=== PATIENT | male | born 1950 | race Caucasian/White ===

== ENCOUNTER 2023-11-18 08:38 | Outpatient (OUT) | payer MEDICARE, SELFPAY ==
--- NOTE | 2023-11-18 08:49 | ECG_ITS ---
The [facility] Test Date: 2023-11-18 Pat Name: SARIKA WALLACE Department: Room: - Gender: Male Brusher: : 1950 Requested By: Order Number: [id number] Reading MD: TIFFANI ELWIS Measurements Intervals [place] Rate: 49 P: 75 NV: 194 QRS: 58 QRSD: 108 T: 81 QT: 419 QTc: 382 Interpretive Statements SINUS BRADYCARDIA MODERATE INTRAVENTRICULAR CONDUCTION DELAY [105+ ms QRS DURATION, 80+ ms Q/S IN V1/V2, NO Q AND 60+ ms R IN I/aVL/V5/V6] NONSPECIFIC T-WAVE ABNORMALITY No previous ECG available for comparison Electronically Signed On 11-18-2023 22:23:47 EST by TIFFANI LEWIS
--- NOTE | 2023-11-18 09:47 | XR_ITS ---
The [address] [address] Patient Name: SARIKA WALLACE MRN: [id number] date: 1950 Sex: M Assigned Patient Location: [facility] Current Patient Location: [facility] Accession/Order Number: [id number] Exam Date: 11/18/2023 09:40 Report Date: 11/18/2023 10:04 At the request of: MILLIE ROBLES Procedure: XR chest 2V EXAM: XR chest 2V HISTORY: Preop exam COMPARISON: None. TECHNIQUE: PA and lateral views of the chest. FINDINGS: The cardiomediastinal silhouette is normal. No focal consolidation is identified. There is no pneumothorax. No pleural effusion is noted. The osseous structures are intact. XR/XR chest 2V IMPRESSION: No acute cardiopulmonary process. Suggestion of COPD. Electronically authenticated by: WHIT PHILIPPE Date: 11/18/2023 10:04
[2023-11-18 09:51] LABS: Basophils Absolute Auto 0.1 10^3/uL (0.0-0.1); Eosinophils Absolute Auto 0.1 10^3/uL (0.0-0.7); Eosinophils Percent Auto 1.5 % (0.9-7.0); Hematocrit 40.2 % (42.0-54.0); Hemoglobin 13.5 g/dL (14.0-18.0); Immature Granulocytes Abs Auto 0.01 10^3/uL (0.00-0.03); Immature Granulocytes Pct Auto 0.2 % (0.0-0.5); Lymphocytes Absolute Auto 1.5 10^3/uL (1.2-3.8); Lymphocytes Percent Auto 24.6 % (20.5-60.0); Mean Corpuscular HGB Conc 33.6 g/dL (29.9-35.2); Mean Corpuscular Hemoglobin 31.8 pg (25.9-34.0); Mean Corpuscular Volume 94.6 fL (80.0-94.0); Mean Platelet Volume 9.4 fL (9.5-13.5); Monocytes Absolute Auto 0.5 10^3/uL (0.3-0.8); Monocytes Percent Auto 7.8 % (1.7-12.0); Neutrophils Percent Auto 64.9 % (43.0-75.0); Platelet Count 198 10^3/uL (150-450); Red Blood Count 4.25 10^6/uL (4.70-6.10); Red Cell Distribution Width 12.9 % (11.0-15.0); White Blood Count 6.2 10^3/uL (4.0-11.0)
--- NOTE | 2023-11-18 09:53 | PM.PRESUREVA ---
History of Present Illness History of Present Illness Chief complaint: LESION, LEFT EXTERNAL EAR CANAL Narrative: Patient presents for preadmission testing. The patient reports hearing loss and left ear drainage for a few months. He has a history of lung cancer in remission, CAD with stent placement, and tobacco use. He denies fever, sore throat, difficulty swallowing, or any other complaints. Review of Systems ROS Narrative REVIEW OF SYSTEMS: Negative except as stated in HPI, ten or more systems reviewed. Constitutional: No fever , chills, weakness ENT: No sore throat or epistaxis Cardiovascular: No edema, chest pain, palpitations, or activity intolerance Respiratory: No shortness of breath, cough, or wheezing Musculoskeletal: No joint pain or swelling Gastrointestinal: No abdominal pain, constipation, diarrhea, or vomiting Genitourinary: No dysuria or hematuria Neurological: No numbness, tingling, weakness, or headache Psychiatric: No mood changes [facility] Medical History (Updated 11/18/23 @ 09:23 by Iwona Swanson NP) Ear lesion ?H93.90 - Unspecified disorder of ear, unspecified ear (ICD-10) Back pain ?M54.9 - Dorsalgia, unspecified (ICD-10) Arthritis ?M19.90 - Unspecified osteoarthritis, unspecified site (ICD-10) Lung cancer ?C34.90 - Malignant neoplasm of unspecified part of unspecified bronchus or lung (ICD-10) Erectile dysfunction ?N52.9 - Male erectile dysfunction, unspecified (ICD-10) High cholesterol ?E78.00 - Pure hypercholesterolemia, unspecified (ICD-10) Hypertension ?I10 - Essential (primary) hypertension (ICD-10) Coronary artery disease ?I25.10 - Atherosclerotic heart disease of [place] coronary artery without angina pectoris (ICD-10) Hearing loss ?H91.90 - Unspecified hearing loss, unspecified ear (ICD-10) Surgical History (Updated 11/18/23 @ 09:45 by Iwona Swasnon NP) History of foot surgery ?Z98.890 - Other specified postprocedural states (ICD-10) History of hernia repair ?Z98.890 - Other specified postprocedural states (ICD-10) ?Z87.19 - Personal history of other diseases of the digestive system (ICD-10) History of total hip arthroplasty ?Z96.649 - Presence of unspecified artificial hip joint (ICD-10) History of heart artery stent ?Z95.5 - Presence of coronary angioplasty implant and graft (ICD-10) History of spinal surgery ?Z98.890 - Other specified postprocedural states (ICD-10) Family History (Updated 11/18/23 @ 09:23 by Iwona Swanson NP) Other Brain aneurysm Family history of myocardial infarction Social History (Updated 11/18/23 @ 09:17 by Iwona Swanson NP) Within the past year, how often did you have a drink containing alcohol: never Score interpretation: A score less than 4 is consistent with normal alcohol consumption. Smoking status: Current every day smoker What tobacco products do you use: cigarettes Packs per day: 1 Years smoked: 60 Smoking pack-years: 60.00 Highest level of school completed/degree received: high school graduate Meds Home Medications and Allergies Home Medications Medication Instructions Recorded Confirmed Type amlodipine 10 mg tablet 10 mg PO DAILY 11/18/23 11/18/23 History aspirin 81 mg tablet,delayed 81 mg PO DAILY 11/18/23 11/18/23 History release (Adult Aspirin Regimen) atorvastatin 20 mg tablet 20 mg PO DAILY 11/18/23 11/18/23 History benazepril 40 mg tablet 40 mg PO DAILY 11/18/23 11/18/23 History carvedilol 25 mg tablet 25 mg PO BID 11/18/23 11/18/23 History hydrochlorothiazide 25 mg tablet 25 mg PO DAILY 11/18/23 11/18/23 History sertraline 50 mg tablet 50 mg PO Q24H 11/18/23 11/18/23 History Allergies Allergy/AdvReac Type Severity Reaction Status Date / Time No Known Drug Allergies Allergy Verified 11/18/23 09:11 Exam Narrative Exam Narrative: Constitutional: Awake, alert, comfortable, chronically-ill appearing, poorly groomed, nontoxic, interactive, vital signs as charted Head: Normocephalic, atraumatic ENT: Active drainage from left ear canal Neck: Supple, normal appearance, normal range of motion, no meningeal signs, no lymphadenopathy Respiratory: No respiratory distress, breath sounds clear Cardiovascular: Bradycardic rate and reguar rhythm, no murmur Musculoskeletal: Normal gait, no swelling or edema Skin: No rashes or induration, no lesions, only visible skin inspected Neuro: No neurological deficits, normal sensation Psychiatric: Oriented ?3, normal affect Assessment and Plan Assessment and Plan (1) Ear lesion: Plan Biopsy left external auditory canal scheduled with Dr. Calvo 12/02/2023.
[2023-11-18 10:05] LABS: Anion Gap 8.1; BUN Creatinine Ratio 18.2; Calcium 8.8 mg/dL (8.5-10.1); Carbon Dioxide 30.6 mmol/L (21.0-32.0); Chloride 100 mmol/L (98-107); Estimated GFR (African America >60 (>=60); Estimated GFR (Non-African Ame >60 (>=60); Glucose 95 mg/dL (74-106); Potassium 3.7 mmol/L (3.5-5.1); Sodium 135 mmol/L (136-145)
[2023-11-18 10:11] LABS: INR 1.08; Partial Thromboplastin Time 29.8 sec (22.3-36.2); Prothrombin Time 11.4 sec (9.0-11.6)
== END 2023-11-18 08:39 | disposition home or self-care (01) ==
LOC: PST 08:41
PROVIDERS: PCP Family Medicine; Visit Provider Otolaryngology
DX: Z01.810 Encounter for preprocedural cardiovascular examination (principal); Z01.818 Encounter for other preprocedural examination; Z01.812 Encounter for preprocedural laboratory examination; H61.92 Disorder of left external ear, unspecified
CPT/HCPCS: 71046; 80048; 85025; 85610; 85730; 93005; G0463

== ENCOUNTER 2023-12-02 08:33 | Day surgery (SDC) | payer MEDICARE, SELFPAY ==
[2023-11-18 09:46] VITALS: BP 157/76; PULSE 56; RESP 20; TEMP 36.3; O2SAT 97; BMI 20.9
[2023-12-02] VITALS (9 sets, daily range): BP systolic 137–152; BP diastolic 71–79; PULSE 64–81; RESP 14–23; TEMP 36–36.1; O2SAT 93–97
--- NOTE | 2023-12-02 | OP_ITS ---
OPERATION DATE: 12/02/2023 PRIMARY CARE PHYSICIAN: Georgia Buenrostro M.D. SURGEON: Christine Calvo M.D. PREOPERATIVE DIAGNOSIS: Left external auditory canal lesion. POSTOPERATIVE DIAGNOSIS: Left external auditory canal lesion. PROCEDURE: Biopsy of left external auditory canal lesion. ANESTHESIA: General LMA. COMPLICATIONS: None. FINDINGS: Exophytic lesion of the anterior medial left external auditory canal concerning for squamous cell carcinoma. INDICATIONS: This 73-year-old man presented with a soft tissue lesion of the left external auditory canal concerning for a possible carcinoma. PROCEDURE: Patient identified in the holding area and taken back to the OR where he was placed in the supine position. After induction of general anesthesia, the left ear was approached with the otomicroscope. Lidocaine 1% with 1:100,000 epinephrine was injected into the base of the exophytic portion of the lesion. The ear was the irrigated with isopropyl alcohol and, after waiting adequate time for hemostasis, a Bellucci scissor was used to amputate the exophytic portion of the lesion at its base. It was then sent for pathologic analysis. There was no bleeding and the patient was awakened and taken to the recovery room in good condition. JENA
--- OUTSIDE RECORDS SUMMARY | 2023-12-02 08:35 | XMS_ITS | CCD ---
Author Name Unknown Address [address] [place] [address] Organization [facility] Care Team Providers Care Scrubber Machine Tender Name Role Phone HIGHLANDER, PETER Unavailable Unavailable HIGHLANDER, PETER Unavailable Unavailable PORTER, GEORGIA Unavailable Unavailable HIGHLANDER, PETER Unavailable Unavailable HIGHLANDER, PETER Unavailable Unavailable HIGHLANDER, PETER Unavailable Unavailable ZIEBER, CHARANJIT R Unavailable Unavailable HIGHLANDER, PETER Unavailable Unavailable HIGHLANDER, PETER Unavailable Unavailable HIGHLANDER, PETER Unavailable Unavailable PORTER, GEORGIA Unavailable Unavailable HIGHLANDER, PETER Unavailable Unavailable HIGHLANDER, PETER Unavailable Unavailable HIGHLANDER, PETER Unavailable Unavailable PORTER, GEORGIA Unavailable Unavailable ZIEBER, CHARANJIT R Unavailable Unavailable HIGHLANDER, PETER Unavailable Unavailable RENETTA, JAKE Unavailable Unavailable HIGHLANDER, PETER Unavailable Unavailable HIGHLANDER, PETER Unavailable Unavailable ZIEBER, CHARANJIT R Unavailable Unavailable HIGHLANDER, PETER Unavailable Unavailable HIGHLANDER, PETER Unavailable Unavailable HIGHLANDER, PETER Unavailable Unavailable ZIEBER, CHARANJIT R Unavailable Unavailable HIGHLANDER, PETER Unavailable Unavailable HIGHLANDER, PETER Unavailable Unavailable HIGHLANDER, PETER Unavailable Unavailable ZIEBER, CHARANJIT R Unavailable Unavailable HIGHLANDER, PETER Unavailable Unavailable BARON, MENA Unavailable Unavailable BARON, MENA Unavailable Unavailable WESTANDREAS V Unavailable Unavailable BARON, MENA Unavailable Unavailable HIGHLANDER, PETER Unavailable Unavailable HIGHLANDER, PETER Unavailable Unavailable WESTANDREAS V Unavailable Unavailable HIGHLANDER, PETER Unavailable Unavailable HIGHLANDER, PETER Unavailable Unavailable HIGHLANDER, PETER Unavailable Unavailable Porter SINCLAIR, Georgia Banegas Primary Care Provider Georgia Buenrostro MD Primary Care Provider [phone] MILLIE ROBLES Attending Unavailable Tawanna STOCK Referring Unavailable GEORGIA BUENROSTRO Primary Care Unavailable YUMIKO SHAW Referring Unavailable YUMIKO SHAW Attending Unavailable GEORGIA BUENROSTRO Primary Care Unavailable MILA, JIAN Referring Unavailable GEORGIA BUENROSTRO Primary Care Unavailable KATHYLOU, JAIN Referring Unavailable GEORGIA BUENROSTRO Primary Care Unavailable Tawanna STOCK Referring Unavailable Tawanna STOCK Attending Unavailable GEORGIA BUENROSTRO Primary Care Unavailable Medications Completed/Discontinued Medications Medication Drug Class(es) Dates Sig (Normalized) Sig (Original) amLODIPine 5 mg oral tablet (2 sources) Dihydropyridine Calcium Channel Nicole take 1 tablet by mouth once daily amLODIPine 5 mg tablet Take 5 mg by mouth once daily. 0 Active Comment on above: Take 5 mg by mouth o nce daily. aspirin 81 mg oral tablet (2 sources) Platelet Aggregation Inhibitor, Nonsteroidal Anti-inflammatory Drug Aspirin 81 mg tab Ta ke 81 mg by mouth. 0 Active Comment on above: Take 81 mg by mouth. atorvastatin 20 mg oral tablet (2 sources) HMG-CoA Reductase Inhibitor take 1 tablet by mouth once daily atorvastatin 20 mg tablet Take 20 mg by mouth once daily. 0 Active Comment on above: Take 20 mg by mouth once daily. benazepril hydrochloride 40 mg oral tablet (2 sources) Angiotensin Converting Enzyme Inhibitor take 1 tablet by mouth once daily Benazepril HCl 40 mg tablet Take 40 mg by mouth once daily. 0 Active Comment on above: Take 40 mg by mouth once daily. carvedilol 25 mg oral tablet (2 sources) alpha-Adrenergic Nicole, beta-Adrenergic Nicole Start: 09-03-20 take 1 tablet by mouth twice daily at mealtime carvedilol (COREG) 25 mg tablet Take 25 mg by mouth twice daily with meals. 0 09/03/2015 Active Comment on above: Take 25 mg by mouth twice daily with meals. hydroCHLOROthiazide 25 mg oral tablet (2 sources) Thiazide Diuretic take 1 tablet by mouth once daily hydrochlorothiazide 25 mg tablet Take 25 mg by mouth once daily. 0 Active Comment on above: Take 25 mg by mouth once daily. meloxicam 15 mg oral tablet (1 source) Nonsteroidal Anti-inflammatory Drug End: 04-18-20 take 1 tablet by mouth once daily meloxicam 15 mg tablet Take 15 mg by mouth once daily. 0 04/18/2022 Discontinued (Discontinued by another Health Care Provider) Comment on above: Take 15 mg by mouth once daily. sertraline 50 mg oral tablet (2 sources) Serotonin Reuptake Inhibitor take 1 tablet by mouth once daily sertraline 50 mg tablet Take 50 mg by mouth once daily. 0 Active Comment on above: Take 50 mg by mouth once daily. Problems Active Problems Problem Classification Problem Date Documented Date Episodic/Chronic Acquired foot deformities (10 sources) Other hammer toe(s) (acquired), left foot; Translations: [Hallux valgus (acquired), left foot] Onset: 8 Chronic Acquired foot deformities (4 sources) Bunion of left foot; Translations: [BUNION OF LEFT FOOT] Onset: 8 Anxiety disorders (1 source) Anxiety disorder, unspecified; Translations: [ANXIETY DISORDER UNSPECIFIED] Onset: 8 Chronic Cancer of bronchus; lung (4 sources) Malignant tumor of lung; Translations: [Malignant neoplasm of unspecified part of unspecified bronchus or lung] Onset: 4 02-18-2014 Chronic Coronary atherosclerosis and other heart disease (1 source) Atherosclerotic heart disease of [place] coronary artery without angina pectoris; Translations: [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] Onset: 8 Chronic Disorders of lipid metabolism (1 source) Pure hypercholesterolemia, unspecified; Translations: [PURE HYPERCHOLESTEROLEMIA UNSPEC] Onset: 8 Essential hypertension (1 source) Essential (primary) hypertension; Translations: [ESSENTIAL PRIMARY HYPERTENSION] Onset: 8 Chronic Immunizations and screening for infectious disease (1 source) Needs influenza immunization; Translations: [Encounter for immunization] Episodic Other acquired deformities (1 source) Contracture, left ankle; Translations: [CONTRACTURE LEFT ANKLE] Onset: 8 Chronic Other connective tissue disease (1 source) Presence of right artificial knee joint; Translations: [PRESENCE RT ARTIFICIAL KNEE JOINT] Onset: 8 Chronic Other connective tissue disease (5 sources) Pain in left foot; Translations: [PAIN IN LEFT FOOT] Onset: 8 Episodic Other nervous system disorders (2 sources) Pain due to neoplastic disease; Translations: [Neoplasm related pain (acute) (chronic)] Onset: 4 02-18-2014 Chronic Peripheral and visceral atherosclerosis (4 sources) Peripheral vascular disease, unspecified; Translations: [PERIPHERAL VASCULAR DISEASE UNS] Onset: 8 Chronic Residual codes; unclassified (4 sources) Other specified postprocedural states; Translations: [OTH SPECIFIED POSTPROCEDURAL STATES] Onset: 8 Substance-related disorders (1 source) Nicotine dependence, cigarettes, uncomplicated; Translations: [NICOTINE DEPEND CIGARETTES UNCOMP] Onset: 8 Chronic Past or Other Problems Problem Classification Problem Date Documented Date Episodic/Chronic Cancer of bronchus; lung (6 sources) Personal history of other malignant neoplasm of bronchus and lung; Translations: [History of malignant neoplasm of thoracic cavity structure] Onset: 4 Episodic Joint disorders and dislocations; trauma-related (2 sources) Unspecified dislocation of left toe(s), subsequent encounter; Translations: [Dislocation of metatarsophalangeal joint of left lesser toe(s), initial encounter] Onset: 8 Episodic Other aftercare (1 source) intermediate frame tender (current) use of aspirin; Translations: [RISK CONTROL REPRESENTATIVE CURRENT USE OF ASPIRIN] Onset: 8 Episodic Other connective tissue disease (1 source) Metatarsalgia, left foot; Translations: [METATARSALGIA LEFT FOOT] Onset: 8 Episodic Other connective tissue disease (1 source) Arthrodesis status; Translations: [ARTHRODESIS STATUS] Onset: 8 Episodic Other lower respiratory disease (2 sources) Lung mass; Translations: [Other nonspecific abnormal finding of lung field] Onset: 4 02-18-2014 Episodic Other upper respiratory infections (2 sources) Acute sinusitis; Translations: [Acute sinusitis, unspecified] Onset: 6 10-23-2016 Episodic Results Test Name Value Interpretation Reference Range Facility [facility] 10-24-2023 [facility] Visit (SP) Office ([place]) -------- SARIKA CROWDER ([id number]) 1950 M Date Time Provider Department 10/24/23 10:30 AM YUMIKO SHAW During your visit today, we recorded the following information about you: Temperature Pulse Respiration Blood pressure 97.6 degrees 58/minute 16/minute 126/71 Weight Height 66.4 kg 1.715 m Yumiko Shaw PA-C 10/24/2023 10:55 AM Signed PATIENT NAME: Sarika Crowder [facility] NO.: [id number] ATTENDING PHYSICIAN: Jian Muniz MD DATE OF SERVICE: October 24, 2023 (Elements copied from Dr. 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 Treatment History: 1. Concurrent chemo ( Carbo/Taxotere and erbitux per Dr. Zamarripa 03/09/2014-04/13/2014. XRT 03/16/2014-04/22/2014 Patient with complete response. HPI: Sarika returns for 1 year follow up. Doing well overall. Breathing is stable. Still smoking about 1 ppd. Is seeing ENT for an ear infection which he reports is getting better. No other new medical issues or complaints. PAST MEDICAL HISTORY Diagnosis Date Hypertension Lung mass 02/14/2014 Neck fracture (HCC) h/o Rib fracture h/o Stented coronary artery Social History Tobacco Use Smoking status: Every Day Packs/day: 1.00 Years: 45.00 Additional pack years: 0.00 Total pack years: 45.00 Types: Cigarettes Passive exposure: Current Smokeless tobacco: Never Vaping Use Vaping Use: Never used Substance Use Topics Alcohol use: No Drug use: Never No family history on file. Past medical, social and family history reviewed without any changes. REVIEW OF SYSTEMS GENERAL: No weight loss, malaise or fevers. No night sweats. HEENT: Negative for headaches, No changes in hearing or vision, no nose bleeds or other nasal problems. +ear infection RESPIRATORY: Negative for cough, wheezing and shortness of breath CARDIOVASCULAR: Negative for chest pain, leg swelling and palpitations GI: Negative for abdominal discomfort, blood in stools or black stools and change in bowel habits : Negative for dysuria, frequency and incontinence MUSCULOSKELETAL: Negative for joint pain or swelling, back pain, and muscle pain. SKIN: Negative for lesions, rash, and itching. HEMATOLOGY/LYMPHOLOGY Negative for prolonged bleeding, bruising easily, and swollen nodes. NEURO: Negative for numbness or tingling of hands/feet. No weakness. PHYSICAL EXAMINATION: BP 126/71 Pulse 58 Temp (Src) 97.6 (Temporal) Resp 16 Ht 5' 7.52 (1.72m) Wt 146 lb 6.2 oz (66.4kg) SpO2 96% BMI 22.58 kg/(m2). ECOG PERFORMANCE STATUS: 0- Fully active, able to carry on all pre-disease performance w/o restriction. General: Alert and oriented, no distress, pleasant and cooperative. Heart: Regular, normal S1 and S2, no murmurs, rubs, or gallops Lungs: Clear to auscultation bilaterally Abdomen: Benign Extremities: Feet/ankles without edema, posterior tibial pulses full and symmetrical LABS: PATH: SCC of the lung. Imaging: PET 12/2018: 1. NECK: No FDG avid neoplastic process. No mass, adenopathy, or fluid collection. 2. CHEST: New tiny hypermetabolic foci of uptake in the right hilar region, likely related to tiny subcentimeter lymph nodes. These lymph nodes are likely reactive lymph nodes. Attention to this region on follow-up CT scan of the chest or PET/CT scan. 3. ABDOMEN/PELVIS: No FDG avid neoplastic process. No mass, adenopathy, or fluid collection CT of the Chest 10/27/2020: 1. New right lower lobe groundglass opacities and new 6-7 mm right middle lobe nodular opacity, most likely infectious/inflammatory in etiology. Superimposed neoplasm cannot be excluded. Consider follow-up to complete resolution. 2. Healing fracture deformity of the left posterior 11th rib, new since 10/15/2019. 3. Nonobstructing right renal stones. 4. Right apical post radiation change, stable. 5. Mild emphysematous changes of lungs CT Chest 10/2022: 1. New subtle reticular groundglass opacities in the right lower lobe, most likely infectious/inflammatory in etiology. Consider follow-up to complete resolution. 2. Right apical post radiation change, stable. CT chest 10/2023: 1. Interval resolution of previously noted right lower lobe reticulonodular opacities. 2. Otherwise no interval change since 10/18/22. 3. Right apical post radiation change and punctate nodular opacities, stable. Assessment and Plan: Sarika Crowder is a 73 year old year old male here for follow up. T4,N1,M0 NSCLC- Squamous cell lung cancer of the R lung post chemo and XRT per Dr. Zamarripa completed 2013 in [place] and doing clinically well. Reviewed chest CT (more content not included)... Normal [facility] CNPNon 10-20-2023 CNPN Telephone ([place]) -------- SARIKA CROWDER ([id number]) 1950 M Date Time Provider Department 10/20/23 GALINA RENEE During your visit today, we recorded the following information about you: Galina Renee RN 10/20/2023 11:25 AM Signed ----- Message from Nikki Cole RN sent at 10/20/2023 11:14 AM EST ----- ----- Message ----- From: Jian Muniz MD Sent: 10/18/2023 8:56 AM EST To: Nikki Cole RN Call with negative CT Galina Renee RN 10/20/2023 11:27 AM Signed VM left with Malik message. Pt is encouraged to call with any questions or concerns Galina Renee RN Allergies As of Date: 10/20/2023 (No Known Allergies) Date Reviewed: 04/03/2023 Reviewed by: Mehreen Horne LPN - Fully Assessed Reason for Visit: Results [95] Prescriptions as of 10/20/2023 - carvedilol (COREG) 25 mg tablet Take 25 mg by mouth twice daily with meals. - amLODIPine 5 mg tablet Take 5 mg by mouth once daily. - Aspirin 81 mg tab Take 81 mg by mouth. - atorvastatin 20 mg tablet Take 20 mg by mouth once daily. - Benazepril HCl 40 mg tablet Take 40 mg by mouth once daily. - hydrochlorothiazide 25 mg tablet Take 25 mg by mouth once daily. - sertraline 50 mg tablet Take 50 mg by mouth once daily. Problem List As Of Date 10/20/2023 Noted Resolved Lung mass [R91.8] 02/18/2014 Lung cancer [C34.90] 02/18/2014 Cancer associated pain [G89.3] 02/18/2014 Personal history of malignant neoplasm of bronc*07/12/2014 Acute sinusitis [J01.90] 10/23/2016 Encounter Status:Closed by GALINA RENEE on 10/20/23 [facility] [address] CHEST WO IVCONon 10-17-20 CT CHEST WO IVCON * * *Final Report* * * DATE OF EXAM: Oct 17 2023 10:02AM [facility] 0541 - CT CHEST WO IVCON / PROCEDURE REASON: Malignant neoplasm of unspecified part of unspecified bronchus or lung (HCC) * * * * Physician Interpretation * * * * RESULT: EXAMINATION: CHEST CT WITHOUT CONTRAST CLINICAL HISTORY: Malignant neoplasm of unspecified part of unspecified bronchus or lung (HCC) Technique: Spiral CT acquisition of the chest from the thoracic inlet to the upper abdomen without contrast. MQ: [id number]_6 CT Radiation dose: Integrated Dose-length product (DLP) for this visit = 193 mGy*cm CT Dose Reduction Employed: Automated exposure control (AEC) Comparison: 10/18/22 RESULT: Limitations: Motion artifact. Lines, tubes, and devices: None. Lung parenchyma and airways: Mild emphysematous changes of the lungs. Right apical consolidative opacities most likely related post radiation change, stable. Streaky scarring/discoid atelectasis in the bilateral lower lobes. 2 mm right upper lobe nodular opacity (4: 21), and 2 mm left lower lobe opacities (4:139), stable. Punctate calcified granuloma in the right lower lobe (4:177), stable. Prominent dependent atelectasis. Interval resolution of previously noted right lower lobe reticulonodular opacities. The central airways are patent. Pleural space: No pleural effusion. No pleural thickening. Lower neck, lymph nodes, and mediastinum: The imaged thyroid gland is normal. No lymphadenopathy in the supraclavicular, axillary, mediastinal, or hilar regions. Heart, pericardium, and thoracic vessels: The thoracic aorta and main pulmonary artery are normal in caliber. The cardiac chambers are normal in size. Atherosclerotic coronary artery calcifications are noted. No pericardial effusion or thickening. Bones and soft tissues: Deformities of multiple bilateral ribs compatible sequela of prior trauma. No new osseous abnormalities.. Upper abdomen: No evidence of an adrenal mass in the visualized field of view. M48/M60 Tank Driver (topogram) images: No additional findings. IMPRESSION: 1. Interval resolution of previously noted right lower lobe reticulonodular opacities. 2. Otherwise no interval change since 10/18/22. 3. Right apical post radiation change and punctate nodular opacities, stable. Transcribe Date/Time: Oct 17 2023 3:06P Dictated by: SCOTT MARKHAM MD This examination was interpreted and the report reviewed and electronically signed by: SCOTT MARKHAM MD on Oct 17 2023 3:55PM EST Thank you for allowing us to participate in the care of your patient. Should there be any questions regarding this interpretation, please call [phone]. If you are unable to reach us at the number above, please feel free to contact [facility] at [phone]. [id number] Normal [facility] CNOVon 04-03-2023 CNOV Office Visit (RADTSA ) -------- MADISONSARIKA Perez ([id number]) 1950 M Date Time Provider Department 04/03/23 9:00 AM Tawanna STOCK During your visit today, we recorded the following information about you: Temperature Pulse Respiration Blood pressure 97.2 degrees 52/minute 16/minute 152/73 Weight 66.1 kg Tawanna Stock MD 04/08/2023 3:09 PM Signed Radiation Oncology - Follow Up Note PATIENT NAME: Sarika Crowder PATIENT DIAGNOSIS: lung cancer Diagnosis: Non-small cell carcinoma, Squamous cell carcinoma, Poorly differentiated. Stage: IIIB Radiation Course Summary Treatment Technique: IMRT, RA Imaging: kvkv stereoscopic and cone beam CT Date Start: 03/16/14 Date Complete: 04/21/14 Treatment Area Number Vann Energy Number of Fractions (Elapsed Days) Dose Right Lung and Mediastinum 1 arc 6MV 25(35) 4500 cGy Right Lung and Mediastinal Boost 1 arc 6MV 8(11) 1440 cGy Total Right Lung and Mediastinum 33(46) 5940 cGy INTERVAL HISTORY: Doing well denies problems. Denies new problems. RADIOLOGY: Chest x-ray 04/03/2023: 1. No interval change since 04/12/22. 2. Mild patchy opacities in the right lung apex and streaky scarring/discoid atelectasis in the left lower lung field, stable. ALLERGIES: ALLERGIES No Known Allergies MEDICATIONS: carvedilol (COREG) 25 mg tablet Take 25 mg by mouth twice daily with meals. amLODIPine 5 mg tablet Take 5 mg by mouth once daily. Aspirin 81 mg tab Take 81 mg by mouth. atorvastatin 20 mg tablet Take 20 mg by mouth once daily. Benazepril HCl 40 mg tablet Take 40 mg by mouth once daily. hydrochlorothiazide 25 mg tablet Take 25 mg by mouth once daily. sertraline 50 mg tablet Take 50 mg by mouth once daily. REVIEW OF SYSTEMS: GENERAL: SEE HPI. HEENT: Negative for sudden vision or hearing changes. NECK: Negative for masses in the neck. RESPIRATORY: SEE HPI. CARDIAC: Negative for chest pain, palpitations, murmurs, or syncopal episodes. GI: Negative for nausea, vomiting, diarrhea, constipation, blood per rectum, or melena. : Negative for dysuria, hematuria, urgency, frequency or incontinence. MUSCULOSKELETAL: no pain NEURO: Negative for dizziness, headache, weakness or numbness. HEMATOLOGIC: Negative for bleeding or easy bruising. SKIN: no rash PHYSICAL EXAM: VS: BP 152/73 Pulse (!) 52 Temp 36.2 ?C (97.2 ?F) Resp 16 Wt 66.1 kg (145 lb 12.8 oz) SpO2 97% BMI 22.49 kg/m? KPS: 90 General Appearance: Well appearing, alert, in no acute distress, well-hydrated, well nourished.. Skin: no rash Lungs: Lungs clear to auscultation. No wheezing, rhonchi, rales. Heart: RRR without murmur, gallop, or rubs. No ectopy. Abdomen: Normal abdominal exam, Abdomen soft, non-tender. No masses, organomegaly. Neurologic: Gait normal. Reflexes normal and symmetric. Sensation grossly intact.. Lymph Nodes: No cervical lymphadenopathy, No supraclavicular lymphadenopathy and No axillary lymphadenopathy. ASSESSMENT AND PLAN: Stage IIIB non-small cell carcinoma lung status post combined radiation chemotherapy 2013. Overall very well without clinical or radiographic evidence of recurrence. No significant posttreatment problems. He has continued follow-up with medical oncology including CT chest in October. Plan to see patient back in 1 year for follow-up. Signed by: Tawanna Stock MD Referring Provider: Tawanna STOCK [[id number]] Allergies As of Date: 04/03/2023 (No Known Allergies) Date Reviewed: 04/03/2023 Reviewed by: Mehreen Horne LPN - Fully Assessed Reason for Visit: Lung Cancer [562] Primary Visit Diagnosis:Personal history of malignant neoplasm of bronchus and lung [Z85.118] Order(s):XR CHEST 2V FRONTAL/LAT [[id number]] Order #: [id number] FUTURE Prescriptions as of 04/08/2023 - carvedilol (COREG) 25 mg tablet Take 25 mg by mouth twice daily with meals. - amLODIPine 5 mg tablet Take 5 mg by mouth once daily. - Aspirin 81 mg tab Take 81 mg by mouth. - atorvastatin 20 mg tablet Take 20 mg by mouth once daily. - Benazepril HCl 40 mg tablet Take 40 mg by mouth once daily. - hydrochlorothiazide 25 mg tablet Take 25 mg by mouth once daily. - sertraline 50 mg tablet Take 50 mg by mouth once daily. Problem List As Of Date 04/03/2023 Noted Resolved Lung mass [R91.8] 02/18/2014 Lung cancer [C34.90] 02/18/2014 Cancer associated pain [G89.3] 02/18/2014 Personal history of malignant neoplasm of bronc*07/12/2014 Acute sinusitis [J01.90] 10/23/2016 Disposition: Return in about 1 year (around 04/03/2024). Follow-up and Disposition History for Encounter Date Provider Department Center 04/03/2023 [id number] STOCK Encounter Status:Closed by Tawanna STOCK on 04/08/23 Normal [facility] XR CHEST 2V FRONTAL/LATon XR CHEST 2V FRONTAL/LAT * * *Final Report* * * DATE OF EXAM: Apr 03 2023 8:42AM [facility] [id number] - XR CHEST 2V FRONTAL/LAT / PROCEDURE REASON: Personal history of malignant neoplasm of bronchus and lung * * * * Physician Interpretation * * * * RESULT: EXAMINATION: CHEST RADIOGRAPH (2 VIEW FRONTAL and LATERAL) CLINICAL HISTORY: Personal history of malignant neoplasm of bronchus and lung MQ: XC2_6 EXAM DATE/TIME: 04/03/2023 8:42 AM COMPARISON: Chest x-ray dated 04/12/22, 04/11/21; CT chest dated 10/18/22 RESULT: Lines, tubes, and devices: None. Lungs and pleura: Streaky scarring/discoid atelectasis in the left lower lung field, stable. Mild patchy opacities in right lung apex, stable. No pleural effusion. No pneumothorax. Cardiomediastinal silhouette: Heart is mildly enlarged. Atherosclerotic calcification of the aortic arch. Bones and soft tissues: Deformities of several bilateral ribs are again noted compatible with sequela of prior trauma. IMPRESSION: 1. No interval change since 04/12/22. 2. Mild patchy opacities in the right lung apex and streaky scarring/discoid atelectasis in the left lower lung field, stable. Transcribe Date/Time: Apr 03 2023 9:57A Dictated by: SCOTT MARKHAM MD This examination was interpreted and the report reviewed and electronically signed by: SCOTT MARKHAM MD on Apr 03 2023 10:18AM EST Thank you for allowing us to participate in the care of your patient. Should there be any questions regarding this interpretation, please call [phone]. If you are unable to reach us at the number above, please feel free to contact [facility] at [phone]. [id number] Normal [facility] Complete Blood Count with Au to Diffon 12-25-2021 Basophils (Bld) [#/Vol] 0.05 10*3/uL Normal 0.00-0.20 [facility] [place] Comment on above: Performed By: #### C BCAD, CMP, LIPD #### [facility] [address] [place], [place] [id number] Basophils/100 WBC (Bld) 0.7 % Normal [facility] Specialist Comment on above: Performed By: #### C BCAD, CMP, LIPD #### [facility] [address] [place], [place] [id number] Eosinophils (Bld) [#/Vol] 0.17 10*3/uL Normal 0.02-0.50 [facility] [place] Comment on above: Performed By: #### C BCAD, CMP, LIPD #### [facility] [address] [place], [place] [id number] Eosinophils/100 WBC (Bld) 2.5 % Normal [facility] [place] Comment on above: Performed By: #### C BCAD, CMP, LIPD #### [facility] [address] [place], [place] [id number] Erythrocyte distribution width (RBC) [Ratio] 12.6 % Normal 11.0-15.0 [facility] [place] Comment on above: Performed By: #### C BCAD, CMP, LIPD #### [facility] [address] [place], [place] [id number] Hematocrit (Bld) [Volume fraction] 42.1 % Normal 38.5-50.0 [facility] [place] Comment on above: Performed By: #### C BCAD, CMP, LIPD #### [facility] [address] [place], [place] [id number] Hemoglobin (Bld) [Mass/Vol] 14.3 g/dL Normal 13.0-17.1 [facility] [place] Comment on above: Performed By: #### C BCAD, CMP, LIPD #### [facility] [address] [place], [place] [id number] Lymphocytes (Bld) [#/Vol] 1.4 10*3/uL Normal 0.9-3.9 [facility] [place] Comment on above: Performed By: #### C BCAD, CMP, LIPD #### [facility] [address] [place], [place] [id number] Lymphocytes/100 WBC (Bld) 19.7 % Normal [facility] Comment on above: Performed By: #### C BCAD, CMP, LIPD #### [facility] [address] [place], [place] [id number] MCH (RBC) [Entitic mass] 31.8 pg Normal 27.0-33.0 [facility] Comment on above: Performed By: #### C BCAD, CMP, LIPD #### [facility] [address] [place], [place] [id number] MCHC (RBC) [Mass/Vol] 34.0 g/dL Normal 32.0-36.0 [facility] Comment on above: Performed By: #### C BCAD, CMP, LIPD #### [facility] [address] [place], [place] [id number] MCV (RBC) [Entitic vol] 94 fL Normal 80-100 [facility] Comment on above: Performed By: #### C BCAD, CMP, LIPD #### [facility] [address] [place], [place] [id number] Monocytes (Bld) [#/Vol] 0.6 10*3/uL Normal 0.2-0.9 [facility] Comment on above: Performed By: #### C BCAD, CMP, LIPD #### [facility] [address] [place], [place] [id number] Monocytes/100 WBC (Bld) 8.3 % Normal [facility] Comment on above: Performed By: #### C BCAD, CMP, LIPD #### [facility] [address] [place], [place] [id number] Neutrophils (Bld) [#/Vol] 4.7 10*3/uL Normal 1.5-7.8 [facility] Comment on above: Performed By: #### C BCAD, CMP, LIPD #### [facility] [address] [place], [place] [id number] Neutrophils/100 WBC (Bld) 68.5 % Normal [facility] Comment on above: Performed By: #### C BCAD, CMP, LIPD #### [facility] [address] [place], [place] [id number] Platelet mean volume (Bld) [Entitic vol] 10.30 fL Normal 7.50-12.50 [facility] Comment on above: Performed By: #### C BCAD, CMP, LIPD #### [facility] [address] [place], [place] [id number] Platelets (Bld) [#/Vol] 168 10*3/uL Normal 140-400 [facility] Comment on above: Performed By: #### C BCAD, CMP, LIPD #### [facility] [address] [place], [place] [id number] RBC (Bld) [#/Vol] 4.49 10*6/uL Normal 4.20-5.80 [facility] Comment on above: Performed By: #### C BCAD, CMP, LIPD #### [facility] [address] [place], [place] [id number] RDW-SD 43.8 fL Normal 37.0-50.0 [facility] Comment on above: Performed By: #### C BCAD, CMP, LIPD #### [facility] [address] [place], [place] [id number] WBC (Bld) [#/Vol] 6.9 10*3/uL Normal 3.8-11.0 [facility] [place] Comment on above: Performed By: #### C BCAD, CMP, LIPD #### [facility] [address] [place], [place] [id number] Comprehensive Metabolic Pane franco 12-25-2021 Albumin [Mass/Vol] 4.4 g/dL Normal 3.6-5.1 [facility] [place] Comment on above: Performed By: #### C BCAD, CMP, LIPD #### [facility] [address] [place], [place] [id number] Albumin/Globulin [Mass ratio] 2.6 {ratio} High 1.0-2.5 [facility] Comment on above: Performed By: #### C BCAD, CMP, LIPD #### [facility] [address] [place], [place] [id number] ALP [Catalytic activity/Vol] 84 U/L Normal 40-129 [facility] Comment on above: Performed By: #### C BCAD, CMP, LIPD #### [facility] [address] [place], [place] [id number] ALT [Catalytic activity/Vol] 10 U/L Normal 9-46 [facility] Comment on above: Result Comment: 10/10 Female reference range changed. Performed By: #### C BCAD, CMP, LIPD #### [facility] [address] [place], [place] [id number] Anion gap [Moles/Vol] 16 mmol/L Normal 12-20 [facility] Comment on above: Result Comment: Effe ctive 11/15/2019 reference range changed. Performed By: #### C BCAD, CMP, LIPD #### [facility] [address] [place], [place] [id number] AST [Catalytic activity/Vol] 14 U/L Normal 10-40 [facility] Comment on above: Performed By: #### C BCAD, CMP, LIPD #### [facility] [address] [place], [place] [id number] Bilirubin [Mass/Vol] 0.45 mg/dL Normal 0.30-1.20 [facility] Comment on above: Performed By: #### C BCAD, CMP, LIPD #### [facility] [address] [place], [place] [id number] BUN/CREA 29 Ratio High 6-22 [facility] Comment on above: Performed By: #### C BCAD, CMP, LIPD #### [facility] [address] [place], [place] [id number] Calcium [Mass/Vol] 9.2 mg/dL Normal 8.6-10.2 [facility] Comment on above: Performed By: #### C BCAD, CMP, LIPD #### [facility] [address] [place], [place] [id number] Chloride [Moles/Vol] 100 mmol/L Normal 98-107 [facility] Comment on above: Performed By: #### C BCAD, CMP, LIPD #### [facility] [address] [place], [place] [id number] CO2 [Moles/Vol] 28 mmol/L Normal 20-31 [facility] [place] Comment on above: Performed By: #### C BCAD, CMP, LIPD #### [facility] [address] [place], [place] [id number] Creatinine [Mass/Vol] 0.9 mg/dL Normal 0.7-1.4 [facility] [place] Comment on above: Performed By: #### C BCAD, CMP, LIPD #### [facility] [address] [place], [place] [id number] eGFRAA 102 mL/min/1.73m2 Normal >60 [facility] Comment on above: Performed By: #### C BCAD, CMP, LIPD #### [facility] [address] [place], [place] [id number] eGFRNAA 84 mL/min/1.73m2 Normal >60 [facility] Comment on above: Performed By: #### C BCAD, CMP, LIPD #### [facility] [address] [place], [place] [id number] Globulin (S) [Mass/Vol] 1.7 g/dL Low 1.9-3.7 [facility] Comment on above: Performed By: #### C BCAD, CMP, LIPD #### [facility] [address] [place], [place] [id number] Glucose [Mass/Vol] 99 mg/dL Normal 65-99 [facility] [place] Comment on above: Result Comment: For FASTING Glucose --- ADA reference ranges: Normal 65-99 mg/dl Prediabetes 100-125 Diabetes >/= 126 Performed By: #### C BCAD, CMP, LIPD #### [facility] [address] [place], [place] [id number] Potassium [Moles/Vol] 3.6 mmol/L Normal 3.5-5.5 [facility] [place] Comment on above: Performed By: #### C BCAD, CMP, LIPD #### [facility] [address] [place], [place] [id number] Protein [Mass/Vol] 6.1 g/dL Normal 6.1-8.1 [facility] [place] Comment on above: Performed By: #### C BCAD, CMP, LIPD #### [facility] [address] [facility] [place] [id number] Sodium [Moles/Vol] 140 mmol/L Normal 135-146 [facility] Comment on above: Performed By: #### C BCAD, CMP, LIPD #### [facility] [address] [place], [place] [id number] Urea nitrogen [Mass/Vol] 26 mg/dL High 7-25 [facility] Comment on above: Performed By: #### C BCAD, CMP, LIPD #### [facility] [address] [place], [place] [id number] Lipid Panelon 12-25-2021 Cholesterol [Mass/Vol] 119 mg/dL Low 125-200 [facility] Comment on above: Result Comment: Low risk < 200mg/dL Borderline risk 201-239 mg/dl High risk > or equal to 240 Performed By: #### C BCAD, CMP, LIPD #### [facility] [address] [place], [place] [id number] Cholesterol in HDL [Mass/Vol] 42 mg/dL Normal >40 [facility] Comment on above: Result Comment: High Cardiovascular Risk HDL <40 mg/dL Low Cardiovascular Risk HDL > or equal to 60 mg/dl Performed By: #### C BCAD, CMP, LIPD #### [facility] [address] [place], [place] [id number] Cholesterol in LDL [Mass/Vol] 61 mg/dL Normal [facility] Comment on above: Result Comment: LDL ATP III CLASSIFICATION LDL less than 100 mg/dl Optimal LDL 100-129 mg/dl Near or above optimal LDL 130-159 Borderline high LDL 160-189 High LDL greater than 189 mg/dl Very High Performed By: #### C BCAD, CMP, LIPD #### [facility] [address] [place], [place] [id number] Cholesterol in VLDL [Mass/Vol] 16 mg/dL Normal [facility] Comment on above: Performed By: #### C BCAD, CMP, LIPD #### [facility] [address] [facility] [place] [id number] Cholesterol.total/ Cholesterol in HDL [Mass ratio] 3 {ratio} Normal [facility] [place] Comment on above: Performed By: #### C BCAD, CMP, LIPD #### [facility] [address] [place], [place] [id number] Triglyceride [Mass/Vol] 78 mg/dL Normal 30-150 [facility] [place] Comment on above: Result Comment: TRIG ATPIII CLASSIFICATIONS TRIG less than 150 mg/dl Normal TRIG 150-199 mg/dl Borderline High TRIG 200-500 mg/dl High TRIG greather than 500 mg/dl Very High Performed By: #### C BCAD, CMP, LIPD #### [facility] [address] [place], [place] [id number] PSA SCREEN (MEDICARE)on 12-11 TPSA 1.890 ng/mL Normal <4.000 [facility] [place] Comment on above: Result Comment: PSA Test Method: ECLIA/Corey e 601 Performed By: #### P SA MC #### [facility] [address] [place], [place] [id number] XR FOOT LT MIN 3 VIEWSon XR FOOT LT MIN [address] [place] [id number] Patient: SARIKA CROWDER Exam Date: 09/28/2018DOB: 1950 Gender:M : AUSTIN RODRIGUEZ Admission #: [id number] : Order #: [id number] HERE TO VIEW EXAM RADIOLOGY REPORT PROCEDURE: RADIOGRAPH FOOT LEFT MIN 3 VIEWS COMPARISON: XR FOOT LT MIN 3 VIEWS, 09/15/2018. INDICATIONS: Post operative left foot, subsequent imaging FINDINGS: BONES: Stable fusion of the 1st metatarsophalangeal joint with residual hallux valgus deformity. 2 screws across the 2nd metatarsal head. Suspected resection 2nd proximal phalangeal heads, unchangedSOFT TISSUES: No visible soft tissue swelling or radiopaque foreign body. OTHER: Negative. CONCLUSION: 1. Stable exam Dictated by: Andreas Tan M.D. on 09/28/2018 at 10:03 Approved by: Andreas Tan M.D. on 09/28/2018 at 10:04 Normal [facility] XR FOOT LT MIN 3 VIEWSon XR FOOT LT MIN 3 VIEWS [address] [place] [address] Patient: SARIKA CROWDER Exam Date: 09/15/2018DOB: 1950 Gender:M : MENA AVALOS Admission #: [id number] : Order #: [id number] HERE TO VIEW EXAM RADIOLOGY REPORT PROCEDURE: RADIOGRAPH FOOT LEFT MIN 3 VIEWS COMPARISON: XR FOOT LT MIN 3 VIEWS, 08/28/2018. INDICATIONS: Post operative left foot, subsequent imaging FINDINGS: BONES: Interval removal of the pain in the 2nd toe. Stable internal fixation of the 1st metatarsophalangeal joint. 2 stable small screws head of the 2nd metatarsal. Suspected resection 2nd through 5th proximal phalangeal headsSOFT TISSUES: No visible soft tissue swelling or radiopaque foreign body. OTHER: Negative. CONCLUSION: 1. Stable exam Dictated by: Andreas Tan M.D. on 09/15/2018 at 12:21 Approved by: Andreas Tan M.D. on 09/15/2018 at 12:48 Normal [facility] XR FOOT LT MIN 3 VIEWSon XR FOOT LT MIN 3 VIEWS [address] [place] [address] Patient: SARIKA CROWDER Exam Date: 08/28/2018DOB: 1950 Gender:M : AUSTIN Clark JENNIFERRUCHI Admission #: [id number] : Order #: [id number] HERE TO VIEW EXAM RADIOLOGY REPORT PROCEDURE: RADIOGRAPH FOOT LEFT MIN 3 VIEWS COMPARISON: XR FOOT LT MIN 3 VIEWS, 08/10/2018. INDICATIONS: Surgical follow-up left foot hammertoe surgery, subsequent imaging FINDINGS: BONES: Stable mechanical fusion of the 1st metatarsophalangeal joint without evidence of hardware failure. Stable osteotomy of the head of the 2nd metatarsal. Stable pinning of the 2nd toe.SOFT TISSUES: No visible soft tissue swelling or radiopaque foreign body. OTHER: Negative. CONCLUSION: 1. Stable postsurgical changes. Dictated by: Charanjit Holman M.D. on 08/28/2018 at 12:01 Approved by: Charanjit Holman M.D. on 08/28/2018 at 12:01 Normal [facility] XR FOOT LT MIN 3 VIEWSon XR FOOT LT MIN 3 VIEWS [address] [place] [address] Patient: SARIKA CROWDER Exam Date: 08/10/2018DOB: 1950 Gender:M : AUSTIN RODRIGUEZ Admission #: [id number] : Order #: [id number] HERE TO VIEW EXAM RADIOLOGY REPORT PROCEDURE: RADIOGRAPH FOOT LEFT MIN 3 VIEWS COMPARISON: XR FOOT LT MIN 3 VIEWS, 08/03/2018. INDICATIONS: Pain in left foot, post-operative imaging of left foot, subsequent imaging FINDINGS: BONES: Stable mechanical fusion and bunionectomy of the 1st metatarsophalangeal joint. Stable pinning of the 2nd toe with the wire still in place. No change in alignment.SOFT TISSUES: No visible soft tissue swelling or radiopaque foreign body. OTHER: Negative. CONCLUSION: 1. Stable postsurgical changes without evidence of hardware fracture or loosening. Dictated by: Charanjit Holman M.D. on 08/10/2018 at 12:40 Approved by: Charanjit Holman M.D. on 08/10/2018 at 12:42 Normal [facility] XR FOOT LT MIN 3 VIEWSon XR FOOT LT MIN 3 VIEWS [address] [place] [address] Patient: SARIKA CROWDER Exam Date: 08/03/2018DOB: 1950 Gender:M : AUSTIN RODRIGUEZ Admission #: [id number] : Order #: [id number] HERE TO VIEW EXAM RADIOLOGY REPORT PROCEDURE: RADIOGRAPH FOOT LEFT MIN 3 VIEWS COMPARISON: XR FOOT LT MIN 3 VIEWS, 07/21/2018. INDICATIONS: Surgical follow-up hammertoe left foot, subsequent imaging FINDINGS: BONES: Stable mechanical fixation of the 1st metatarsophalangeal joint without evidence of hardware fracture or loosening. Stable pinning of the 2nd toe and screws within the 2nd metatarsal.SOFT TISSUES: Cast material has been removed.OTHER: Negative. CONCLUSION: 1. Stable postsurgical changes. Dictated by: Charanjit Holman M.D. on 08/03/2018 at 11:41 Approved by: Charanjit Holman M.D. on 08/03/2018 at 11:42 Normal [facility] XR FOOT LT MIN 3 VIEWSon XR FOOT LT MIN 3 VIEWS [address] [place] [address] Patient: SARIKA CROWDER Exam Date: 07/21/2018DOB: 1950 Gender:M : AUSTIN RODRIGUEZ Admission #: [id number] : DR CHARANJIT HOLMAN Order #: [id number] HERE TO VIEW EXAM RADIOLOGY REPORT PROCEDURE: RADIOGRAPH FOOT LEFT MIN 3 VIEWS COMPARISON: XR FOOT LT MIN 3 VIEWS, 07/21/2018. INDICATIONS: Post operative imaging for acquired left hallux valgus, hammertoe FINDINGS: BONES: Postoperative straightening and fusion of the 1st metatarsophalangeal joint via plate and screws. Pinning of the 2nd toe extending through all 3 phalanges and anchored in the head of the metatarsal.SOFT TISSUES: Images were obtained through cast material.OTHER: Negative. CONCLUSION: 1. Mechanical fusion of the left 1st metatarsophalangeal joint. 2. Pinning of the 2nd toe. Dictated by: Charanjit Holman M.D. on 07/21/2018 at 15:58 Approved by: Charanjit Holman M.D. on 07/21/2018 at 16:01 Normal [facility] XR FOOT LT MIN 3 VIEWS [address] [place] [address] Patient: SARIKA CROWDER Exam Date: 07/21/2018DOB: 1950 Gender:M : AUSTIN RODRIGUEZ Admission #: [id number] : Order #: [id number] HERE TO VIEW EXAM RADIOLOGY REPORT PROCEDURE: RADIOGRAPH FOOT LEFT MIN 3 VIEWS COMPARISON: XR FOOT LT MIN 3 VIEWS, 07/03/2018. INDICATIONS: Acquired left hallux valgus. Left first metatarsophalangeal joint fusion. FINDINGS: BONES: 20 intraoperative spot fluoroscopic images demonstrate Straightening and mechanical fusion of the 1st metatarsophalangeal joint via plate and screws. CONCLUSION: 1. Left 1st metatarsophalangeal joint fusion . Dictated by: Charanjit Holman M.D. on 07/21/2018 at 15:32 Approved by: Charanjit Holman M.D. on 07/21/2018 at 15:34 Normal [facility] XR FOOT LT MIN 3 VIEWSon XR FOOT LT MIN 3 VIEWS [address] [place] [address] Patient: SARIKA CROWDER Exam Date: 07/03/2018DOB: 1950 Gender:M : AUSTIN RODRIGUEZ Admission #: [id number] : Order #: [id number] HERE TO VIEW EXAM RADIOLOGY REPORT PROCEDURE: RADIOGRAPH FOOT LEFT MIN 3 VIEWS COMPARISON: None. INDICATIONS: Hammer toe left great toe, pain to plantar surface 2nd metatarsophalangeal joint for one year without injury FINDINGS: BONES: Marked lateral deviation of the 1st and 2nd toes. Mild bone hypertrophy of the head of the 1st metatarsal. Dorsal dislocation and 1 cm proximal retraction of the 2nd proximal phalanx in relation to the metatarsal. No acute fracture.SOFT TISSUES: No visible soft tissue swelling or radiopaque foreign body. OTHER: Negative. CONCLUSION: 1. Marked valgus deformity/bunion formation of the left 1st metatarsal phalangeal joint.2. Dorsal dislocation and mild retraction at the 2nd metatarsophalangeal joint.3. No fracture. Dictated by: Charanjit Holman M.D. on 07/03/2018 at 12:19 Approved by: Charanjit Holman M.D. on 07/03/2018 at 12:22 Normal [facility] Vital Signs Date Time Vital Sign Value Performing Clinician Faci lity 10-25-2022 10:06-0500 Body height 171.5 cm Jian Muniz MD Work Phone: [facility] 10-25-2022 10:06-0500 Body temperature 97.39 [degF] Jian Muniz MD Work Phone: [facility] 10-25-2022 10:06-0500 Body weight 66.86 kg Jian Muniz MD Work Phone: [facility] 10-25-2022 10:06-0500 Diastolic blood pressure 65 mm[Hg] Jian Muniz MD Work Phone: [facility] 10-25-2022 10:06-0500 Heart rate 57 /min Jian Muniz MD Work Phone: [facility] 10-25-2022 10:06-0500 Respiratory rate 18 /min Jian Muniz MD Work Phone: [facility] 10-25-2022 10:06-0500 SaO2% (BldA) [Mass fraction] 96 % Jian Muniz MD Work Phone: [facility] 10-25-2022 10:06-0500 Systolic blood pressure 127 mm[Hg] Jian Muinz MD Work Phone: [facility] 04-18-2022 09:56-0400 Body temperature 96.69 [degF] JULIO C Stock MD Work Phone: [facility] 04-18-2022 09:56-0400 Body weight 66.68 kg JULIO C Stock MD Work Phone: [facility] 04-18-2022 09:56-0400 Diastolic blood pressure 66 mm[Hg] JULIO C Stock MD Work Phone: [facility] 04-18-2022 09:56-0400 Heart rate 60 /min JULIO C Stcok MD Work Phone: [facility] 04-18-2022 09:56-0400 Respiratory rate 18 /min JULIO C Stock MD Work Phone: [facility] 04-18-2022 09:56-0400 SaO2% (BldA) [Mass fraction] 96 % JULIO C Stock MD Work Phone: [facility] 04-18-2022 09:56-0400 Systolic blood pressure 123 mm[Hg] JULIO C Stock MD Work Phone: [facility] Encounters Encounter Date Encounter Type Care Provider Facility Start: 10-24-2023 End: 10-24-2023 ambulatory YUMIKO SHAW Facility:[facility] Start: 10-17-2023 End: 10-17-2023 ambulatory JIAN MUNIZ Facility:[facility] Start: 09-29-2023 End: 09-29-2023 ambulatory MILLIE ROBLES Not Available Start: 04-03-2023 End: 04-03-2023 ambulatory Tawanna STOCK Facility:[facility] Start: 10-25-2022 End: 10-25-2022 ambulatory Jian Muniz MD Work Phone: Hematology/Oncology Comment on above: History of lung canc er (Primary Dx); Need for influenza vaccination; Malignant neoplasm of unspecified part of unspecified bronchus or lung (HCC) Start: 10-25-2022 End: 10-25-2022 Patient encounter procedure Jian Muniz MD Work Phone: [place] Start: 04-18-2022 End: 04-18-2022 Patient encounter procedure Tawanna Stock MD Work Phone: Radiation Oncology Comment on above: Personal history of malignant neoplasm of bronchus and lung (Primary Dx) Start: 11-11-2018 Patient encounter [facility] Facility:[facility] Start: 09-28-2018 End: 09-29-2018 Patient encounter procedure [facility] Facility:[facility] Start: 09-15-2018 End: 09-16-2018 Patient encounter procedure MENA COLE Facility:[facility] Start: 08-28-2018 End: 08-29-2018 Patient encounter procedure [facility] Facility:[facility] Start: 08-10-2018 End: 08-11-2018 [facility] Start: 08-03-2018 End: 08-04-2018 Patient encounter procedure [facility] Facility:[facility]1 Start: 07-23-2018 Encounter for other preprocedural examination [facility] RODRIGUEZ [facility] Start: 07-21-2018 End: 07-21-2018 Patient encounter procedure [facility] Facility:[facility]1 Start: 07-15-2018 End: 07-16-2018 Patient encounter procedure [facility] Facility:[facility]1 Start: 07-03-2018 End: 07-04-2018 Patient encounter procedure AUSTIN RODRIGUEZ Facility:[facility] Start: 06-02-2018 End: 06-03-2018 Patient encounter procedure [facility]UST[facility] RODRIGUEZ Facility:[facility]1 Encounter for other preprocedural examination AUSTIN RODRIGUEZ [facility] Procedures Date Procedure Procedure Detail Performing Clinician Start: 04-18-2022 Adult depression screening assessment JULIO C Stock MD Work Phone: Plan of Treatment Date Care Activity Detail Author Start: 04-19-2028 Urine microalbumin profile DTAP,TDAP,TD (2 - Td or Tdap) [facility] Start: 10-25-2023 End: 11-24-2023 Ct thorax w/o contrast material CT CHEST WO IVCON Radiology Routine Malignant neoplasm of unspecified part of unspecified bronchus or lung (HCC) Expected: 10/25/2023, Expires: 11/24/2023 [facility] Work Phone: Comment on above: Expected: 10/25/2023 , Expires: 11/24/2023 Start: 04-18-2023 Adult depression screening assessment DEPRESSION SCREENING [facility] Start: 04-18-2023 End: 05-18-2023 Radiologic exam chest 2 views XR CHEST 2V FRONTAL/LAT Radiology Routine Personal history of malignant neoplasm of bronchus and lung Expected: 04/18/2023 (Approximate), Expires: 05/18/2023 [facility] Work Phone: Comment on above: Expected: 04/18/2023 (Approximate), Expires: 05/18/2023 Start: 11-10-2021 ADVANCE DIRECTIVE DISCUSSION ADVANCE DIRECTIVE DISCUSSION [facility] Start: 11-10-2021 DEPRESSION ASSESSMENT DEPRESSION ASS ESSMENT [facility] Start: 07-12-2021 COVID-19 VACCINE (3 - Booster for Moderna series) COVID-19 VACCINE (3 - Booster for Moderna series) [facility] Start: 04-06-2021 COVID-19 VACCINE (3 - Booster for Moderna series) COVID-19 VACCINE (3 - Booster for Moderna series) [facility] Start: 08-20-2018 PNEUMOCOCCAL: 65+ (3 - PPSV23 if available, else PCV20) PNEUMOCOCCAL: 65+ (3 - PPSV23 if available, else PCV20) [facility] Start: 08-20-2018 PNEUMOCOCCAL: 65+ (3 - PPSV23 or PCV20) PNEUMOCOCCAL: 65+ (3 - PPSV23 or PCV20) [facility] Start: 11-13-2014 SHINGRIX VACCINE (1 of 2) SHINGRIX VACCINE (1 of 2) [facility] Start: 1995 COLOGUARD (FIT-DNA) COLOGUARD (FIT-D NA) [facility] Start: 1995 Colonoscopy COLONOSCOPY [facility] Start: 1995 COLORECTAL CANCER SCREENING COLORECTAL CANCER SCREENING [facility] Start: [address] COLONOGRAPHY [facility] Start: 1995 DIABETES SCREEN DIABETES SCREEN [facility] Start: 1995 FECAL OCCULT BLOOD FECAL OCCULT BLOO D [facility] Start: [address] [facility] Start: 1985 LIPID SCREEN LIPID SCREEN [facility] Start: 1968 HEPATITIS C SCREENING HEPATITIS C SC REENING [facility] Start: 1950 ABDOMINAL AORTIC ANEURYSM SCREENING ABDOMINAL AORTIC ANEURYSM SCREENING [facility] c [facility] Immunizations Immunization Date Immunization Notes Care Provider Fa [facility] 10-25-2022 influenza, high-dose , quadrivalent vaccine (FLUZONE HIGH DOSE QUADRIVALENT) Jian Muniz MD Work Phone: [facility] 10-26-2021 influenza, high-dose , quadrivalent vaccine (FLUZONE HIGH DOSE QUADRIVALENT) JULIO C Stock MD Work Phone: [facility] 10-30-2020 influenza, high-dose , quadrivalent vaccine (FLUZONE HIGH DOSE QUADRIVALENT) JULIO C Stock MD Work Phone: [facility] 10-22-2019 influenza, high dose seasonal, preservative-free JULIO C Stock MD Work Phone: [facility] 12-03-2018 influenza, high dose seasonal, preservative-free JULIO C Stock MD Work Phone: [facility] 04-19-2018 tetanus toxoid, redu isac diphtheria toxoid, and acellular pertussis vaccine, adsorbed JULIO C Stock MD Work Phone: [facility] 08-12-2017 influenza, high dose seasonal, preservative-free JULIO C Stock MD Work Phone: [facility] 08-10-2016 influenza, injectabl e, quadrivalent, preservative free JULIO C Stock MD Work Phone: [facility] 12-18-2015 pneumococcal conjuga te vaccine, 13 valent JULIO C Stock MD Work Phone: [facility] 10-09-2015 influenza, seasonal, injectable JULIO C Stock MD Work Phone: [facility] 08-10-2015 seasonal influenza, intradermal, preservative free JULIO C Stock MD Work Phone: [facility] 09-18-2014 varicella virus vaccine JULIO C latif MD Work Phone: [facility] 08-19-2014 influenza, injectabl e, quadrivalent, preservative free JULIO C Stock MD Work Phone: [facility] 10-13-2013 seasonal influenza, intradermal, preservative free JULIO C Stock MD Work Phone: [facility] 08-21-2013 seasonal influenza, intradermal, preservative free JULIO C Stock MD Work Phone: [facility] 08-20-2013 pneumococcal polysaccharide vaccine, 23 valent JULIO C Stock MD Work Phone: [facility] Payers Date Payer Category Payer Unknown [employer] S [employer] AN[employer]M MEDIBLUE ACCESS [id number] 2013-Present [phone] [address] [place] [address] [facility] [id number] 2013 Unknown ANTHEM BLUE CR[employer] S AND BLUE SHIELD ANTHEM MEDIBLUE ACCESS [id number] 2013-Present [phone] [address] [place] [address] PPO [id number] 1959 Unknown [id number] 1950 Unknown [id number] 1950 Unknown [id number] 1950 Unknown [id number] 1950 Unknown [id number] 1950 Unknown [id number] 1950 Unknown [id number] 1950 Unknown [id number] 1950 Unknown [id number] 1950 Unknown [id number] 1950 Unknown [id number] 1950 Unknown [id number] 9 Social History Date Type Detail Facility Start: 02-18-2014 End: 10-25-2022 Tobacco smoking status NHIS Smokes tobacco daily [facility] History of tobacco use Cigarette Smoker C [facility] Start: 02-18-2014 End: 10-25-2022 Cigarettes smoked current (pack per day) - Reported 1 [facility] Start: 02-18-2014 End: 10-25-2022 Tobacco use and exposure Smokeless tobacco non-user [facility] Start: 10-26-2021 End: 10-25-2022 Alcohol intake Current non-drinker of alcohol (finding) [facility] Start: 1950 Sex Assigned At Not on file C [facility] Start: 04-08-2022 End: 04-18-2022 Exposure to SARS-CoV-2 (event) Not sure [facility] History of tobacco use Passive smoker [facility] Progress note 10-24-2023 Note Date & Type Note Facility 10-24-2023 Note HNO ID: [id number] Author: Yumiko Shaw PA-C Service: ? 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 Treatment History: 1. Concurrent chemo ( Carbo/Taxotere and erbitux per Dr. Zamarripa 03/09/2014-04/13/2014. XRT 03/16/2014-04/22/2014 Patient with complete response. HPI: Sarika returns for 1 year follow up. Doing well overall. Breathing is stable. Still smoking about 1 ppd. Is seeing ENT for an ear infection which he reports is getting better. No other new medical issues or complaints. PAST MEDICAL HISTORY Diagnosis Date Hypertension Lung mass 02/14/2014 Neck fracture (HCC) h/o Rib fracture h/o Stented coronary artery Social History Tobacco Use Smoking status: Every Day Packs/day: 1.00 Years: 45.00 Additional pack years: 0.00 Total pack years: 45.00 Types: Cigarettes Passive exposure: Current Smokeless tobacco: Never Vaping Use Vaping Use: Never used Substance Use Topics Alcohol use: No Drug use: Never No family history on file. Past medical, social and family history reviewed without any changes. REVIEW OF SYSTEMS GENERAL: No weight loss, malaise or fevers. No night sweats. HEENT: Negative for headaches, No changes in hearing or vision, no nose bleeds or other nasal problems. +ear infection RESPIRATORY: Negative for cough, wheezing and shortness of breath CARDIOVASCULAR: Negative for chest pain, leg swelling and palpitations GI: Negative for abdominal discomfort, blood in stools or black stools and change in bowel habits : Negative for dysuria, frequency and incontinence MUSCULOSKELETAL: Negative for joint pain or swelling, back pain, and muscle pain. SKIN: Negative for lesions, rash, and itching. HEMATOLOGY/LYMPHOLOGY Negative for prolonged bleeding, bruising easily, and swollen nodes. NEURO: Negative for numbness or tingling of hands/feet. No weakness. PHYSICAL EXAMINATION: BP 126/71 Pulse 58 Temp (Src) 97.6 (Temporal) Resp 16 Ht 5' 7.52 (1.72m) Wt 146 lb 6.2 oz (66.4kg) SpO2 96% BMI 22.58 kg/(m2). ECOG PERFORMANCE STATUS: 0- Fully active, able to carry on all pre-disease performance w/o restriction. General: Alert and oriented, no distress, pleasant and cooperative. Heart: Regular, normal S1 and S2, no murmurs, rubs, or gallops Lungs: Clear to auscultation bilaterally Abdomen: Benign Extremities: Feet/ankles without edema, posterior tibial pulses full and symmetrical LABS: PATH: SCC of the lung. Imaging: PET 12/2018: 1. NECK: No FDG avid neoplastic process. No mass, adenopathy, or fluid collection. 2. CHEST: New tiny hypermetabolic foci of uptake in the right hilar region, likely related to tiny subcentimeter lymph nodes. These lymph nodes are likely reactive lymph nodes. Attention to this region on follow-up CT scan of the chest or PET/CT scan. 3. ABDOMEN/PELVIS: No FDG avid neoplastic process. No mass, adenopathy, or fluid collection CT of the Chest 10/27/2020: 1. New right lower lobe groundglass opacities and new 6-7 mm right middle lobe nodular opacity, most likely infectious/inflammatory in etiology. Superimposed neoplasm cannot be excluded. Consider follow-up to complete resolution. 2. Healing fracture deformity of the left posterior 11th rib, new since 10/15/2019. 3. Nonobstructing right renal stones. 4. Right apical post radiation change, stable. 5. Mild emphysematous changes of lungs CT Chest 10/2022: 1. New subtle reticular groundglass opacities in the right lower lobe, most likely infectious/inflammatory in etiology. Consider follow-up to complete resolution. 2. Right apical post radiation change, stable. CT chest 10/2023: 1. Interval resolution of previously noted right lower lobe reticulonodular opacities. 2. Otherwise no interval change since 10/18/22. 3. Right apical post radiation change and punctate nodular opacities, stable. Assessment and Plan: Sarika Crowder is a 73 year old year old male here for follow up. T4,N1,M0 NSCLC- Squamous cell lung cancer of the R lung post chemo and XRT per Dr. Zamarripa completed 2013 in [place] and doing clinically well. Reviewed chest CT from 10/2023 with patient today. Will plan to see back in [address] chest without contrast. Discussed decreasing smoking Yumiko Shaw PA-C CC: Georgia Buenrostro MD [facility] Progress note 10-17-2023 Note Date & Type Note Facility 10-17-2023 Note HNO ID: [id number] Author: Kaycee Dumont RT(R) Service: ? Author Type: Technologist Type: Progress Notes Filed: 10/17/2023 10:07 AM Note Text: Radiology Service Progress Note PATIENT NAME: Sarika Crowder DATE OF SERVICE: October 17, 2023 TIME: 10:07 AM PATIENT IDENTITY VERIFICATION COMPLETED USING TWO (2) IDENTIFIERS: Name and Date of confirmed by patient verbally. FALL SCREENING: Has the patient had 2 falls in the last year or 1 fall with injury or currently using an Ambulatory Assistive Device (Walker, Cane, Wheelchair, Crutches, etc.)? No PATIENT GENDER DATA: Male PATIENT RELEVANT IMPLANT DATA REVIEWED: Not Applicable RADIOLOGY DEPARTMENT: CT; Exam(s) Completed: Chest PERIPHERAL IV DATA: Not applicable SIGNED BY: RT Dee(R) October 17, 2023 10:07 AM [facility] Progress note 04-03-2023 Note Date & Type Note Facility 04-03-2023 Note HNO ID: [id number] Author: Tawanna Stock MD Service: ? Author Type: Physician Type: Progress Notes Filed: 04/08/2023 3:09 PM Note Text: Radiation Oncology - Follow Up Note PATIENT NAME: Sarika Crowder PATIENT DIAGNOSIS: lung cancer Diagnosis: Non-small cell carcinoma, Squamous cell carcinoma, Poorly differentiated. Stage: IIIB Radiation Course Summary Treatment Technique: IMRT, RA Imaging: kvkv stereoscopic and cone beam CT Date Start: 03/16/14 Date Complete: 04/21/14 Treatment Area Number Vann Energy Number of Fractions (Elapsed Days) Dose Right Lung and Mediastinum 1 arc 6MV 25(35) 4500 cGy Right Lung and Mediastinal Boost 1 arc 6MV 8(11) 1440 cGy Total Right Lung and Mediastinum 33(46) 5940 cGy INTERVAL HISTORY: Doing well denies problems. Denies new problems. RADIOLOGY: Chest x-ray 04/03/2023: 1. No interval change since 04/12/22. 2. Mild patchy opacities in the right lung apex and streaky scarring/discoid atelectasis in the left lower lung field, stable. ALLERGIES: ALLERGIES No Known Allergies MEDICATIONS: carvedilol (COREG) 25 mg tablet Take 25 mg by mouth twice daily with meals. amLODIPine 5 mg tablet Take 5 mg by mouth once daily. Aspirin 81 mg tab Take 81 mg by mouth. atorvastatin 20 mg tablet Take 20 mg by mouth once daily. Benazepril HCl 40 mg tablet Take 40 mg by mouth once daily. hydrochlorothiazide 25 mg tablet Take 25 mg by mouth once daily. sertraline 50 mg tablet Take 50 mg by mouth once daily. REVIEW OF SYSTEMS: GENERAL: SEE HPI. HEENT: Negative for sudden vision or hearing changes. NECK: Negative for masses in the neck. RESPIRATORY: SEE HPI. CARDIAC: Negative for chest pain, palpitations, murmurs, or syncopal episodes. GI: Negative for nausea, vomiting, diarrhea, constipation, blood per rectum, or melena. : Negative for dysuria, hematuria, urgency, frequency or incontinence. MUSCULOSKELETAL: no pain NEURO: Negative for dizziness, headache, weakness or numbness. HEMATOLOGIC: Negative for bleeding or easy bruising. SKIN: no rash PHYSICAL EXAM: VS: BP 152/73 Pulse (!) 52 Temp 36.2 ?C (97.2 ?F) Resp 16 Wt 66.1 kg (145 lb 12.8 oz) SpO2 97% BMI 22.49 kg/m? KPS: 90 General Appearance: Well appearing, alert, in no acute distress, well-hydrated, well nourished.. Skin: no rash Lungs: Lungs clear to auscultation. No wheezing, rhonchi, rales. Heart: RRR without murmur, gallop, or rubs. No ectopy. Abdomen: Normal abdominal exam, Abdomen soft, non-tender. No masses, organomegaly. Neurologic: Gait normal. Reflexes normal and symmetric. Sensation grossly intact.. Lymph Nodes: No cervical lymphadenopathy, No supraclavicular lymphadenopathy and No axillary lymphadenopathy. ASSESSMENT AND PLAN: Stage IIIB non-small cell carcinoma lung status post combined radiation chemotherapy 2013. Overall very well without clinical or radiographic evidence of recurrence. No significant posttreatment problems. He has continued follow-up with medical oncology including CT chest in October. Plan to see patient back in 1 year for follow-up. Signed by: Tawanna Stock MD [facility] Progress note 04-03-2023 Note Date & Type Note Facility 04-03-2023 Note HNO ID: [id number] Author: RT Dee(R) Service: ? Author Type: Technologist Type: Progress Notes Filed: 04/03/2023 8:43 AM Note Text: Radiology Service Progress Note PATIENT NAME: Sarika Crowder DATE OF SERVICE: April 03, 2023 TIME: 8:43 AM PATIENT IDENTITY VERIFICATION COMPLETED USING TWO (2) IDENTIFIERS: Name and Date of confirmed by patient verbally. FALL SCREENING: Has the patient had 2 falls in the last year or 1 fall with injury or currently using an Ambulatory Assistive Device (Walker, Cane, Wheelchair, Crutches, etc.)? No PATIENT GENDER DATA: Male PATIENT RELEVANT IMPLANT DATA REVIEWED: Not Applicable RADIOLOGY DEPARTMENT: General X-ray: Exam(s) Completed: Chest X-Ray PERIPHERAL IV DATA: Not applicable SIGNED BY: RT Dee(R) April 03, 2023 8:43 AM [facility] Nurse Note 10-25-2022 Cinthya Rojas MA - 10/25/2022 10:50 AM Warren Rojas MA - 10/25/2022 10:10 AM EST Note Date & Type Note Facility 10-25-2022 Nurse Note Patient Identification confirmed: yes. Injection given and documented on JAN per provider order. Cinthya Rojas MA Patient would like a flu shot today. Cinthya Rojas MA documented in this encounter [facility] History of Present illness Narrative 10-25-2022 Jian Muniz MD - 10/25/2022 10:34 AM EST Note Date & Type Note Facility 10-25-2022 History of Presen t illness Narrative PATIENT NAME: Sarika Crowder CLINIC NO.: [id number] ATTENDING PHYSICIAN: Jian Muniz MD DATE OF SERVICE: October 25, 2022 Some of the elements of this note have been copied from my previous progress note dated 10/30/2020. All the information has been reviewed carefully. Dear Dr. 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 Treatment History: 1. Concurrent chemo ( Carbo/Taxotere and erbitux per Dr. Zamarripa 03/09/2014-04/13/2014. XRT 03/16/2014-04/22/2014 Patient with complete response. HPI: Sarika Crowder is a 72 year old year old male here for follow up. Doing well and denies any new complaints. No nausea and or vomiting and denies any MICHAELS. Wants a flu shot and he continues to smoke less than a pack per day. PAST MEDICAL HISTORY Diagnosis Date Hypertension Lung mass 02/14/2014 Neck fracture (HCC) h/o Rib fracture h/o Stented coronary artery Social History Tobacco Use Smoking status: Every Day Packs/day: 1.00 Years: 45.00 Pack years: 45.00 Types: Cigarettes Passive exposure: Current Smokeless tobacco: Never Vaping Use Vaping Use: Never used Substance Use Topics Alcohol use: No Drug use: Never No family history on file. Past medical, social and family history reviewed without any changes. REVIEW OF SYSTEMS GENERAL: No weight loss, malaise or fevers. No night sweats. HEENT: Negative for headaches, No changes in hearing or vision, no nose bleeds or other nasal problems. RESPIRATORY: Negative for cough, wheezing and shortness of breath CARDIOVASCULAR: Negative for chest pain, leg swelling and palpitations GI: Negative for abdominal discomfort, blood in stools or black stools and change in bowel habits : Negative for dysuria, frequency and incontinence MUSCULOSKELETAL: Negative for joint pain or swelling, back pain, and muscle pain. SKIN: Negative for lesions, rash, and itching. HEMATOLOGY/LYMPHOLOGY Negative for prolonged bleeding, bruising easily, and swollen nodes. NEURO: Negative for numbness or tingling of hands/feet. No weakness. PHYSICAL EXAMINATION: BP 127/65 Pulse 57 Temp (Src) 97.4 (Temporal) Resp 18 Ht 5' 7.52 (1.72m) Wt 147 lb 6.4 oz (66.9kg) SpO2 96% BMI 22.73 kg/(m^2). Wt 69.8 kg (153 lb 12.8 oz) BMI 23.72 kg/m2 Last 3 Encounter Wt Readings: Date: Wt: 10/22/2019 69.8 kg (153 lb 12.8 oz) 04/14/2019 66.2 kg (146 lb) 10/14/2018 66.2 kg (146 lb) General appearance:ECOG PERFORMANCE STATUS: 0- Fully active, able to carry on all pre-disease performance w/o restriction. Patient in NAD. Skin: Skin color, texture, turgor normal. No rashes or lesions. Eyes: Anicteric sclera. Pupils are equally round and reactive to light. Extraocular movements are intact. Lymph Nodes: No cervical, supraclavicular, axillary or inguinal adenopathy. Oropharynx: Lips, mucosa, and tongue normal. Back: No pain to percussion. Negative SLR test Lungs clear to auscultation, No wheezing or rhonchi Heart: RRR without murmur, gallop, or rubs. Abdomen soft, non-tender. No masses, organomegaly Extremities: No deformities. No edema Neuro: Gait and speech normal. Reflexes normal and symmetric. Muscular strength intact. Sensation grossly intact. Rectal: Deferred : Deferred LABS: Creatinine, Whole Blood (iSTAT) (mg/dL) Date Value 07/30/2017 0.90 Calcium (mg/dL) Date Value 02/18/2014 8.8 Protein, Total (g/dL) Date Value 02/18/2014 6.4 Albumin (g/dL) Date Value 02/18/2014 3.9 Bilirubin, Total (mg/dL) Date Value 02/18/2014 0.5 Alkaline Phosphatase (U/L) Date Value 02/18/2014 83 AST (U/L) Date Value 02/18/2014 13 ALT (U/L) Date Value 02/18/2014 12 WBC Date Value Ref Range Status 08/03/2014 4.78 3.70 - 11.00 k/uL Final RBC Date Value Ref Range Status 08/03/2014 3.81 (L) 4.20 - 6.00 m/uL Final Hemoglobin Date Value Ref Range Status 08/03/2014 13.2 13.0 - 17.0 g/dL Final Hematocrit Date Value Ref Range Status 08/03/2014 37.8 (L) 39.0 - 51.0 % Final MCV Date Value Ref Range Status 08/03/2014 99.2 80.0 - 100.0 fL Final MCH Date Value Ref Range Status 08/03/2014 34.6 (H) 26.0 - 34.0 pG Final MCHC Date Value Ref Range Status 08/03/2014 34.9 30.5 - 36.0 g/dL Final RDW-CV Date Value Ref Range Status 08/03/2014 11.2 (L) 11.5 - 15.0 % Final Platelet Count Date Value Ref Range Status 08/03/2014 136 (L) 150 - 400 k/uL Final MPV Date Value Ref Range Status 08/03/2014 10.5 9.0 - 12.7 fL Final Abs Neut (ANC) Date Value Ref Range Status 04/18/2014 1.63 1.45 - 7.50 k/uL Final Lymph% Date Value Ref Range Status 04/18/2014 16.8 % Final Abs Lymph Date Value Ref Range Status 04/18/2014 0.38 (L) 1.00 - 4.00 k/uL Final [place]% Date Value Ref Range Status 04/18/2014 9.7 % Final Abs [place] Date Value Ref Range Status 04/18/2014 0.22 0.00 - 0.86 k/uL Final Abs Eosin Date Value Ref Range Status 04/18/2014 0.02 0.00 - 0.45 k/uL Final Baso% Date Value Ref Range Status 04/18/2014 0.4 % Final Abs Baso Date Value Ref Range Status 04/18/2014 0.01 0.00 - 0.10 k/uL Final Comment: Performed at [facility] , [address] [place] [address] PATH: SCC of the lung. Imaging: PET 12/2018: 1. NECK: No FDG avid neoplastic process. No mass, adenopathy, or fluid collection. 2. CHEST: New tiny hypermetabolic foci of uptake in the right hilar region, likely related to tiny subcentimeter lymph nodes. These lymph nodes are likely reactive lymph nodes. Attention to this region on follow-up CT scan of the chest or PET/CT scan. 3. ABDOMEN/PELVIS: No FDG avid neoplastic process. No mass, adenopathy, or fluid collection CT of the Chest 10/27/2020: 1. New right lower lobe groundglass opacities and new 6-7 mm right middle lobe nodular opacity, most likely infectious/inflammatory in etiology. Superimposed neoplasm cannot be excluded. Consider follow-up to complete resolution. 2. Healing fracture deformity of the left posterior 11th rib, new since 10/15/2019. 3. Nonobstructing right renal stones. 4. Right apical post radiation change, stable. 5. Mild emphysematous changes of lungs CT Chest 10/2022: 1. New subtle reticular groundglass opacities in the right lower lobe, most likely infectious/inflammatory in etiology. Consider follow-up to complete resolution. 2. Right apical post radiation change, stable. Assessment and Plan: Sarika Crowder is a 72 year old year old male here for follow up. T4,N1,M0 NSCLC- Squamous cell lung cancer of the R lung post chemo and XRT per Dr. Zamarripa completed 2013 in [place] and doing clinically well. CT Chest 10/2022 reviewed/ See back in [address] year with non contrast CT of the chest again Discussed decreasing smoking Flu Vaccination today Thank you for the kind referral. If there are any questions and or concerns please do not hesitate to contact me at [phone]. Jian Muniz MD Hematology/Medical Oncology [facility] CC: Georgia Buenrostro MD I spent a total of 30 minutes on the date of the service which included preparing to see the patient, [id number] patient care, completing clinical documentation, obtaining and/or reviewing separately obtained history, performing a medically appropriate examination, and ordering medications, tests, or procedures. documented in this encounter [facility] History of Present illness Narrative 04-18-2022 Tawanna Stock MD - 04/18/2022 9:52 AM EDT Note Date & Type Note Facility 04-18-2022 History of Presen t illness Narrative Images from the original note were not included. Radiation Oncology - Follow Up Note PATIENT NAME: Sarika Crowder PATIENT DIAGNOSIS: lung cancer Diagnosis: Non-small cell carcinoma, Squamous cell carcinoma, Poorly differentiated. Stage: IIIB Radiation Course Summary Treatment Technique: IMRT, RA Imaging: kvkv stereoscopic and cone beam CT Date Start: 03/16/14 Date Complete: 04/21/14 Treatment Area Number Vann Energy Number of Fractions (Elapsed Days) Dose Right Lung and Mediastinum 1 arc 6MV 25(35) 4500 cGy Right Lung and Mediastinal Boost 1 arc 6MV 8(11) 1440 cGy Total Right Lung and Mediastinum 33(46) 5940 cGy INTERVAL HISTORY: Doing well denies problems. Denies new problems. RADIOLOGY: Chest x-ray 04/12/22: IMPRESSION: Stable appearance to the chest. No evidence for active cardiopulmonary disease. ALLERGIES: ALLERGIES No Known Allergies MEDICATIONS: carvedilol (COREG) 25 mg tablet Take 25 mg by mouth twice daily with meals. amLODIPine 5 mg tablet Take 5 mg by mouth once daily. Aspirin 81 mg tab Take 81 mg by mouth. atorvastatin 20 mg tablet Take 20 mg by mouth once daily. Benazepril HCl 40 mg tablet Take 40 mg by mouth once daily. hydrochlorothiazide 25 mg tablet Take 25 mg by mouth once daily. sertraline 50 mg tablet Take 50 mg by mouth once daily. REVIEW OF SYSTEMS: GENERAL: SEE HPI. HEENT: Negative for sudden vision or hearing changes. NECK: Negative for masses in the neck. RESPIRATORY: SEE HPI. CARDIAC: Negative for chest pain, palpitations, murmurs, or syncopal episodes. GI: Negative for nausea, vomiting, diarrhea, constipation, blood per rectum, or melena. : Negative for dysuria, hematuria, urgency, frequency or incontinence. MUSCULOSKELETAL: no pain NEURO: Negative for dizziness, headache, weakness or numbness. HEMATOLOGIC: Negative for bleeding or easy bruising. SKIN: no rash PHYSICAL EXAM: VS: BP 123/66 Pulse 60 Temp (!) 35.9 C (96.7 F) Resp 18 Wt 66.7 kg (147 lb) SpO2 96% BMI 22.67 kg/m KPS: 90 General Appearance: Well appearing, alert, in no acute distress, well-hydrated, well nourished.. Skin: no rash Lungs: Lungs clear to auscultation. No wheezing, rhonchi, rales. Heart: RRR without murmur, gallop, or rubs. No ectopy. Abdomen: Normal abdominal exam, Abdomen soft, non-tender. No masses, organomegaly. Neurologic: Gait normal. Reflexes normal and symmetric. Sensation grossly intact.. Lymph Nodes: No cervical lymphadenopathy, No supraclavicular lymphadenopathy and No axillary lymphadenopathy. ASSESSMENT AND PLAN: Stage IIIB non-small cell carcinoma lung status post combined radiation chemotherapy 2013. Overall very well without clinical or radiographic evidence of recurrence. No significant posttreatment problems. He has continued follow-up with medical oncology including CT chest in October. Plan to see patient back in 1 year for follow-up. Signed by: Tawanna Stock MD documented in this encounter [facility] Evaluation note Note Date & Type Note Facility Evaluation note Diagnosis Personal history of malignant neoplasm of bronchus and lung- Primary documented in this encounter [facility] Evaluation note Note Date & Type Note Facility Evaluation note Diagnosis History of lung cancer- Primary Personal history of malignant neoplasm of bronchus and lung Need for influenza vaccination Need for prophylactic vaccination and inoculation against influenza Malignant neoplasm of unspecified part of unspecified bronchus or lung (HCC) documented in this encounter [facility] Summary Purpose Family History No Family History Records FoundNo Family History Records FoundNo Family History Records FoundNo Family History Records Found Advance Directives No Advanced Directives Records FoundNo Advanced Directives Records FoundNo Advanced Directives Records FoundNo Advanced Directives Records Found Reason for Referral Specialty Diagnoses / Procedures Referred By Rosa t Referred To Contact CT IMAGING Diagnoses Malignant neoplasm of unspecified part of unspecified bronchus or lung (HCC) Procedures CT CHEST WO IVCON DIAGNOSTIC COMPUTED TOMOGRAPHY THORAX W/O CNTRST Jian Muniz MD [address] [place] [id number] Imaging Referral ID Status Reason Start Date Expiration Date Visits Requested Visits Authorized [id number] Authorized Auto-Generat ed Referral 3 11/24/2023 1 1 Additional Source Comments (unrecognized sect ion and content) No Status Records FoundNo Status Records FoundNo Status Records FoundNo Status Records Found INFORMATION SOURCE (unrecogn ized section and content) DATE CREATED AUTHOR 11/07/2018 [facility] DATE CREATED AUTHOR AUTHOR'S ORGANIZ ATION 12/25/2021 [facility] DATE CREATED AUTHOR AUTHOR'S ORGANIZ ATION 09/30/2023 [facility] EPIC DATE CREATED AUTHOR AUTHOR'S ORGANIZ ATION 10/26/2023 [facility] Source Comments (unrecognize d section and content) In the event this informatio n is protected by the Federal Confidentiality of Alcohol and Drug Abuse Patient Records regulations: The Federal rules restrict any use of the information to criminally investigate or prosecute any alcohol or drug abuse patient.[facility] event this information is protected by the Federal Confidentiality of Alcohol and Drug Abuse Patient Records regulations: The Federal rules restrict any use of the information to criminally investigate or prosecute any alcohol or drug abuse patient.[facility] Reason for Visit (unrecogniz ed section and content) Reason Comments Lung Cancer Reason Comments Lung Cancer 1 year follow up Care Teams (unrecognized sec tion and content) [employer] Relationship Specialty Start Date End Date Georgia Buenrostro MD [address] [place], [place] [id number] PCP - General Family Practice 02/17/14 [employer] Relationship Specialty Start Date End Date Georgia Buenrostro MD [address] [place] [address] PCP - General Family Medicine 02/17/14 FOR RECORDS PERTAINING TO PATIENTS WHO ARE OR HAVE BEEN ENROLLED IN A CHEMICAL DEPENDENCY/SUBSTANCEABUSE PROGRAM, SOME INFORMATION MAY BE OMITTED. This clinical summary was aggregated from multiple sources. Caution should be exercised in using it in the provision of clinical care. This summary normalizes information from multiple sources, and as a consequence, information in this document may materially change the coding, format and clinical context of patient data. In addition, data may be omitted in some cases. CLINICAL DECISIONS SHOULD BE BASED ON THE PRIMARY CLINICAL RECORDS. [facility] [employer] [facility]. provides no warranty or guarantee of the accuracy or completeness of information in this document.
[2023-12-02] MEDS: LACTATED RINGER'S SOLUTION 1,000 ML 50 ML IV (09:08)
[2023-12-02] MEDS: LIDOCAINE HCL 1%-EPINEPHRINE 1:100,000 20 ML MDV INJ (11:03)
== END 2023-12-02 12:21 | disposition home or self-care (01) ==
PROVIDERS: PCP Family Medicine; Visit Provider Otolaryngology
PROC: (CPT 69100; principal; 2023-12-02 09:40)
DX: L57.0 Actinic keratosis (principal); R23.4 Changes in skin texture; Z79.01 Long term (current) use of anticoagulants; I25.10 Atherosclerotic heart disease of native coronary artery without angina pectoris; Z85.118 Personal history of other malignant neoplasm of bronchus and lung; Z95.5 Presence of coronary angioplasty implant and graft; M19.90 Unspecified osteoarthritis, unspecified site; E78.00 Pure hypercholesterolemia, unspecified; I10 Essential (primary) hypertension; H91.90 Unspecified hearing loss, unspecified ear; F17.210 Nicotine dependence, cigarettes, uncomplicated; Z96.641 Presence of right artificial hip joint; I73.9 Peripheral vascular disease, unspecified
CPT/HCPCS: 69100; 36415; 88305; J1100; J2405; J2704

== ENCOUNTER 2023-12-10 09:42 | Outpatient (REF) | payer MEDICARE, SELFPAY ==
--- OUTSIDE RECORDS SUMMARY | 2023-12-10 10:01 | XMS_ITS | CCD ---
Author Name Unknown Address [address] [place] [address] Organization [facility] Care Team Providers Care Licensing Services Clerk Name Role Phone HIGHLANDER, PETER Unavailable Unavailable HIGHLANDER, PETER Unavailable Unavailable ABHIJEET, GE[place] Unavailable Unavailable HIGHLANDER, PETER Unavailable Unavailable HIGHLANDER, PETER Unavailable Unavailable HIGHLANDER, PETER Unavailable Unavailable ZIEBER, CHARANJIT R Unavailable Unavailable HIGHLANDER, PETER Unavailable Unavailable HIGHLANDER, PETER Unavailable Unavailable HIGHLANDER, PETER Unavailable Unavailable ABHIJEET, GE[place] Unavailable Unavailable HIGHLANDER, PETER Unavailable Unavailable HIGHLANDER, PETER Unavailable Unavailable HIGHLANDER, PETER Unavailable Unavailable ABHIJEET, [place] Unavailable Unavailable ZIEBER, CHARANJIT R Unavailable Unavailable HIGHLANDER, PETER Unavailable Unavailable RENETTA JAKE Unavailable Unavailable HIGHLANDER, PETER Unavailable Unavailable [...] PETER Unavailable Unavailable HIGHLANDER, PETER Unavailable Unavailable Georgia Buenrostro MD Primary Care Provider Georgia Buenrostro MD Primary Care Provider CHRISTINE ROBLES Attending Unavailable Tawanna STOCK Referring Unavailable GEORGIA BUENROSTRO Primary Care Unavailable YUMIKO SHAW Referring Unavailable YUMIKO SHAW Attending Unavailable GEORGIA BUENROSTRO Primary Care Unavailable JIAN MUNIZ Referring Unavailable GEORGIA BUENROSTRO Primary Care Unavailable KATHYDOMINGAJIAN Gallego Referring Unavailable GEORGIA BUENROSTRO Primary Care Unavailable Tawanna STOCK Referring Unavailable Tawanna STOCK Attending Unavailable GEORGIA BUENROSTRO Primary Care Unavailable MD Christine Robles Jr Attending Provider Christine Faith Jr Attending Unavailable Christine Robles Jr Admitting Unavailable Medications Completed/Discontinued Medications Medication Drug Class(es) [...] (1 source) Nonsteroidal Anti-inflammatory Drug End: 04-18-20 22 take 1 tablet by mouth once daily [...] disease (1 source) Atherosclerotic heart disease of [place] coronary artery without angina pectoris; 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] Onset: 8 Chronic [...] Onset: 8 Episodic Other aftercare (1 source) shelter (current) use of aspirin; 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] Onset: 8 Episodic [...] Test Name Value Interpretation Reference [facility] CN[facility] Visit (SP) Office ([place]) -------- SARIKA CROWDER ([id number]) 1950 M Date Time Provider Department 10/24/23 10:30 AM YUMIKO SHAW During your visit today, we recorded the following information about you: Temperature Pulse Respiration Blood pressure 97.6 degrees 58/minute 16/minute 126/71 Weight Height 66.4 kg 1.715 m Yumiko Shaw PA-C 10/24/2023 10:55 AM Signed PATIENT NAME: Sarika Perez [facility] NO.: [id number] ATTENDING PHYSICIAN: Jian Muniz MD DATE OF [...] chest CT (more content not included)... Normal [facility] SARIKA CROWDER ([id number]) 1950 M Date Time Provider Department 10/20/23 [...] Status:Closed by GALINA RENEE on 10/20/23 Normal [facility] CT CHEST WO IVCONon 10-17-20 CT CHEST WO IVCON * * *Final Report* * * DATE OF EXAM: Oct 17 2023 10:02AM [facility] 0541 - CT CHEST WO IVCON / [...] mass in the visualized field of view. Cath Laboratory Technician (topogram) images: No additional findings. IMPRESSION: 1. [...] any questions regarding this interpretation, please call [phone]. If you are unable to reach us at the number above, please feel free to contact [facility] at [phone]. [id number] Normal [facility] CNOVon 04-03-2023 CNOV Office Visit (RADTSA ) -------- SARIKA CROWDER ([id number]) 1950 M Date Time Provider Department 04/03/23 9:00 AM Tawanna STOCK During your visit today, we recorded the following information about you: Temperature Pulse Respiration Blood pressure 97.2 degrees 52/minute 16/minute 152/73 Weight 66.1 kg G Markos Stock MD 04/08/2023 3:09 PM Signed Radiation [...] Tawanna Stock MD Referring Provider: Tawanna STOCK [[id number]] Allergies As of Date: 04/03/2023 (No Known Allergies) Date Reviewed: 04/03/2023 Reviewed by: Mehreen Horne LPN - Fully Assessed Reason for Visit: Lung Cancer [562] Primary Visit Diagnosis:Personal history of malignant neoplasm of bronchus and lung [Z85.118] Order(s):XR CHEST 2V FRONTAL/LAT [[id number]] Order #: [id number] FUTURE Prescriptions as of 04/08/2023 - carvedilol [...] for Encounter Date Provider Department Center 04/03/2023 [id number] STOCK MATTHEW DARBY Encounter Status:Closed by Tawanna STOCK on 04/08/23 Normal [facility] XR CHEST 2V FRONTAL/LATon XR CHEST 2V [...] any questions regarding this interpretation, please call [phone]. If you are unable to reach us at the number above, please feel free to contact [facility] at [phone]. [id number] Normal [facility] Complete Blood Count with Au to Diffon 12-25-2021 Basophils (Bld) [#/Vol] 0.05 10*3/uL Normal 0.00-0.20 [facility] Specialist Comment on above: Performed By: #### C BCAD, CMP, LIPD #### [facility] [address] [place] [id number] Basophils/100 WBC (Bld) 0.7 % Normal [facility] Comment on above: Performed By: #### C BCAD, CMP, LIPD #### [facility] [address], [place] [id number] Eosinophils (Bld) [#/Vol] 0.17 10*3/uL Normal 0.02-0.50 [facility] Comment on above: Performed By: #### C BCAD, CMP, LIPD #### [facility] [address] [id number] Eosinophils/100 WBC (Bld) 2.5 % Normal [facility] Comment on above: Performed By: #### C BCAD, CMP, LIPD #### [facility] [address], [place] [id number] Erythrocyte distribution width (RBC) [Ratio] 12.6 % Normal 11.0-15.0 [facility] Comment on above: Performed By: #### C BCAD, CMP, LIPD #### [facility] [address] [facility] [place] [id number] Hematocrit (Bld) [Volume fraction] 42.1 % Normal 38.5-50.0 [facility] Comment on above: Performed By: #### C BCAD, CMP, LIPD #### [facility] [address] [id number] Hemoglobin (Bld) [Mass/Vol] 14.3 g/dL Normal 13.0-17.1 [facility] Comment on above: Performed By: #### C BCAD, CMP, LIPD #### [facility] [address] [id number] Lymphocytes (Bld) [#/Vol] 1.4 10*3/uL Normal 0.9-3.9 [facility] Comment on above: Performed By: #### C BCAD, CMP, LIPD #### [facility] [address] [place], [place] [id number] Lymphocytes/100 WBC (Bld) 19.7 % Normal [facility] Comment on above: Performed By: #### C BCAD, CMP, LIPD #### [facility] [address] [place], [place] [id number] MCH (RBC) [Entitic mass] 31.8 pg Normal 27.0-33.0 [facility] Comment on above: Performed By: #### C BCAD, CMP, LIPD #### [facility] [address] [place], [place] [id number] MCHC (RBC) [Mass/Vol] 34.0 g/dL Normal 32.0-36.0 [facility] Comment on above: Performed By: #### C BCAD, CMP, LIPD #### [facility] [address] [place], [place] [id number] MCV (RBC) [Entitic vol] 94 fL Normal 80-100 [facility] Comment on above: Performed By: #### C BCAD, CMP, LIPD #### [facility] [address] [place], [place] [id number] Monocytes (Bld) [#/Vol] 0.6 10*3/uL Normal 0.2-0.9 [facility] Comment on above: Performed By: #### C BCAD, CMP, LIPD #### [facility] [address] [place], [place] [id number] Monocytes/100 WBC (Bld) 8.3 % Normal [facility] Comment on above: Performed By: #### C BCAD, CMP, LIPD #### [facility] [address] [place], [place] [id number] Neutrophils (Bld) [#/Vol] 4.7 10*3/uL Normal 1.5-7.8 [facility] Comment on above: Performed By: #### C BCAD, CMP, LIPD #### [facility] [address] [place], [place] [id number] Neutrophils/100 WBC (Bld) 68.5 % Normal [facility] Comment on above: Performed By: #### C BCAD, CMP, LIPD #### [facility] [address] [place], [place] [id number] Platelet mean volume (Bld) [Entitic vol] 10.30 fL Normal 7.50-12.50 [facility] Comment on above: Performed By: #### C BCAD, CMP, LIPD #### [facility] [address] [place], [place] [id number] Platelets (Bld) [#/Vol] 168 10*3/uL Normal 140-400 [facility] Comment on above: Performed By: #### C BCAD, CMP, LIPD #### [facility] [address] [place], [place] [id number] RBC (Bld) [#/Vol] 4.49 10*6/uL Normal 4.20-5.80 [facility] Comment on above: Performed By: #### C BCAD, CMP, LIPD #### [facility] [address] [place], [place] [id number] RDW-SD 43.8 fL Normal 37.0-50.0 [facility] Comment on above: Performed By: #### C BCAD, CMP, LIPD #### [facility] [address] [place], [place] [id number] WBC (Bld) [#/Vol] 6.9 10*3/uL Normal 3.8-11.0 [facility] Comment on above: Performed By: #### C BCAD, CMP, LIPD #### [facility] [address] [place], [place] [id number] [facility] 12-25-2021 Albumin [Mass/Vol] 4.4 g/dL Normal 3.6-5.1 [facility] [employer] [facility] Comment on above: Performed By: #### C BCAD, CMP, LIPD #### [facility] [address] [place], [place] [id number] Albumin/Globulin [Mass ratio] 2.6 {ratio} High 1.0-2.5 [facility] Comment on above: Performed By: #### C BCAD, CMP, LIPD #### [facility] [address] [place], [place] [id number] ALP [Catalytic activity/Vol] 84 U/L Normal 40-129 [facility] Comment on above: Performed By: #### C BCAD, CMP, LIPD #### [facility] [address] [facility] [place] [id number] ALT [Catalytic activity/Vol] 10 U/L Normal 9-46 [facility] Comment on above: Result Comment: 10/10 Female reference range changed. Performed By: #### C BCAD, CMP, LIPD #### [facility] [address] [facility] [place] [id number] Anion gap [Moles/Vol] 16 mmol/L Normal 12-20 [facility] Comment on above: Result Comment: Effe ctive 11/15/2019 reference range changed. Performed By: #### C BCAD, CMP, LIPD #### [facility] [address] [facility] [place] [id number] AST [Catalytic activity/Vol] 14 U/L Normal 10-40 [facility] Comment on above: Performed By: #### C BCAD, CMP, LIPD #### [facility] [address] [place], [place] [id number] Bilirubin [Mass/Vol] 0.45 mg/dL Normal 0.30-1.20 [facility] Comment on above: Performed By: #### C BCAD, CMP, LIPD #### [facility] [address] [place], [place] [id number] BUN/CREA 29 Ratio High 6-22 [facility] Comment on above: Performed By: #### C BCAD, CMP, LIPD #### [facility] [address] [place], [place] [id number] Calcium [Mass/Vol] 9.2 mg/dL Normal 8.6-10.2 [facility]ist Comment on above: Performed By: #### C BCAD, CMP, LIPD #### [facility] [address] [facility] [place] [id number] Chloride [Moles/Vol] 100 mmol/L Normal 98-107 [facility] Comment on above: Performed By: #### C BCAD, CMP, LIPD #### [facility] [address] [id number] CO2 [Moles/Vol] 28 mmol/L Normal 20-31 [facility] Comment on above: Performed By: #### C BCAD, CMP, LIPD #### [facility] [address] [id number] Creatinine [Mass/Vol] 0.9 mg/dL Normal 0.7-1.4 [facility] Comment on above: Performed By: #### C BCAD, CMP, LIPD #### [facility] [address], [place] [id number] eGFRAA 102 mL/min/1.73m2 Normal >60 [facility] Specialist Comment on above: Performed By: #### C BCAD, CMP, LIPD #### [facility] [address] [facility] [place] [id number] eGFRNAA 84 mL/min/1.73m2 Normal >60 [facility] Comment on above: Performed By: #### C BCAD, CMP, LIPD #### [facility] [address] [facility] [place] [id number] Globulin (S) [Mass/Vol] 1.7 g/dL Low 1.9-3.7 [facility] Comment on above: Performed By: #### C BCAD, CMP, LIPD #### [facility] [address] [facility] [place] [id number] Glucose [Mass/Vol] 99 mg/dL Normal 65-99 [facility] Comment on above: Result Comment: For FASTING Glucose --- ADA reference ranges: Normal 65-99 mg/dl Prediabetes 100-125 Diabetes >/= 126 Performed By: #### C BCAD, CMP, LIPD #### [facility] [address] [facility] [place] [id number] Potassium [Moles/Vol] 3.6 mmol/L Normal 3.5-5.5 [facility] Comment on above: Performed By: #### C BCAD, CMP, LIPD #### [facility] [address] [place], [place] [id number] Protein [Mass/Vol] 6.1 g/dL Normal 6.1-8.1 [facility] Comment on above: Performed By: #### C BCAD, CMP, LIPD #### [facility] [address] [place], [place] [id number] Sodium [Moles/Vol] 140 mmol/L Normal 135-146 [facility] Comment on above: Performed By: #### C BCAD, CMP, LIPD #### [facility] [address] [place], [place] [id number] Urea nitrogen [Mass/Vol] 26 mg/dL High 7-25 [facility] Comment on above: Performed By: #### C BCAD, CMP, LIPD #### [facility] [address] [place], [place] [id number] Lipid Panelon 12-25-2021 Cholesterol [Mass/Vol] 119 mg/dL Low 125-200 [facility] Comment on above: Result Comment: Low risk < 200mg/dL Borderline risk 201-239 mg/dl High risk > or equal to 240 Performed By: #### C BCAD, CMP, LIPD #### [facility] [address] [place], [place] [id number] Cholesterol in HDL [Mass/Vol] 42 mg/dL Normal >40 [facility] Comment on above: Result Comment: High Cardiovascular Risk HDL <40 mg/dL Low Cardiovascular Risk HDL > or equal to 60 mg/dl Performed By: #### C BCAD, CMP, LIPD #### [facility] [address] [place], [place] [id number] Cholesterol in LDL [Mass/Vol] 61 mg/dL Normal [facility] Specialist Comment on above: Result Comment: LDL ATP III CLASSIFICATION LDL less than 100 mg/dl Optimal LDL 100-129 mg/dl Near or above optimal LDL 130-159 Borderline high LDL 160-189 High LDL greater than 189 mg/dl Very High Performed By: #### C BCAD, CMP, LIPD #### [facility] [address] [place], [place] [id number] Cholesterol in VLDL [Mass/Vol] 16 mg/dL Normal [facility] Comment on above: Performed By: #### C BCAD, CMP, LIPD #### [facility] [address] [place], [place] [id number] Cholesterol.total/ Cholesterol in HDL [Mass ratio] 3 {ratio} Normal [facility] Comment on above: Performed By: #### C BCAD, CMP, LIPD #### [facility] [address] [place], [place] [id number] Triglyceride [Mass/Vol] 78 mg/dL Normal 30-150 [facility] Comment on above: Result Comment: TRIG ATPIII CLASSIFICATIONS TRIG less than 150 mg/dl Normal TRIG 150-199 mg/dl Borderline High TRIG 200-500 mg/dl High TRIG greather than 500 mg/dl Very High Performed By: #### C BCAD, CMP, LIPD #### [facility] [address] [place], [place] [id number] PSA SCREEN (MEDICARE)on 12-11 TPSA 1.890 ng/mL Normal <4.000 [facility] Comment on above: Result Comment: PSA Test Method: ECLIA/Corey e 601 Performed By: #### P SA #### [facility] [address] [place], [place] [id number] XR FOOT LT MIN 3 VIEWSon XR FOOT LT MIN 3 VIEWS [address] [place] [address] Patient: SARIKA CROWDER Exam Date: 09/28/2018DOB: 1950 Gender:M : AUSTIN RODRIGUEZ Admission #: [id number] : Order #: [id number] HERE TO VIEW EXAM RADIOLOGY REPORT PROCEDURE: [...] Tan M.D. on 09/28/2018 at 10:[address] [facility] XR FOOT LT MIN 3 VIEWSon XR FOOT LT MIN [address] [place] [id number] Patient: SARIKA CROWDER Exam Date: 09/15/2018DOB: 1950 Gender:M : MENA AVALOS Admission #: [id number] : Order #: [id number] HERE TO VIEW EXAM RADIOLOGY REPORT PROCEDURE: [...] Tan M.D. on 09/15/2018 at 12:[address] [facility] XR FOOT LT MIN 3 VIEWSon XR FOOT LT MIN [address] [place] [address] Patient: SARIKA CROWDER Exam Date: 08/28/2018DOB: 1950 Gender:M : AUSTIN RODRIGUEZ Admission #: [id number] : Order #: [id number] HERE TO VIEW EXAM RADIOLOGY REPORT PROCEDURE: [...] Holman M.D. on 08/28/2018 at 12:[address] [facility] XR FOOT LT MIN 3 VIEWSon XR FOOT LT MIN 3 VIEWS [address] [place] [address] Patient: SARIKA CROWDERElise Exam Date: 08/10/2018DOB: 1950 Gender:M : AUSTIN RODRIGUEZ Admission #: [id number] : Order #: [id number] HERE TO VIEW EXAM RADIOLOGY REPORT PROCEDURE: [...] Holman M.D. on 08/10/2018 at 12:[address] [facility] XR FOOT LT MIN 3 VIEWSon XR FOOT LT MIN [address] [place] [address] Patient: SARIKA CROWDER Marisol Exam Date: 08/03/2018DOB: 1950 Gender:M : AUSTIN RODRIGUEZ Admission #: [id number] : Order #: [id number] HERE TO VIEW EXAM RADIOLOGY REPORT PROCEDURE: [...] Holman M.D. on 08/03/2018 at 11:[address] [facility] XR FOOT LT MIN 3 VIEWSon XR FOOT LT MIN 3 VIEWS [address] [place] [address] Patient: SARIKA CROWDER Marisol Exam Date: 07/21/2018DOB: 1950 Gender:M : AUSTIN RODRIGUEZ Admission #: [id number] : DR CHARANJIT HOLMAN Order #: [id number] HERE TO VIEW EXAM RADIOLOGY REPORT PROCEDURE: [...] Holman M.D. on 07/21/2018 at 16:[address] [facility] XR FOOT LT MIN 3 VIEWS [address] [place] [address] Patient: SARIKA CROWDER Marisol Exam Date: 07/21/2018DOB: 1950 Gender:M : AUSTIN RODRIGUEZ Admission #: [id number] : Order #: [id number] HERE TO VIEW EXAM RADIOLOGY REPORT PROCEDURE: [...] Holman M.D. on 07/21/2018 at 15:[address] [facility] XR FOOT LT MIN 3 VIEWSon XR FOOT LT MIN 3 VIEWS [address] [place] [address] Patient: SARIKA CROWDER Exam Date: 07/03/2018DOB: 1950 Gender:M : AUSTIN RubioElise JENNIFER Admission #: [id number] : Order #: [id number] HERE TO VIEW EXAM RADIOLOGY REPORT PROCEDURE: [...] Holman M.D. on 07/03/2018 at 12:[address] [facility] Vital Signs Date Time Vital Sign Value Performing Clinician Tequila crabtree 10-25-2022 10:06-0500 Body height 171.5 cm Jian Muniz MD Work Phone: [facility] 10-25-2022 10:06-0500 Body temperature 97.39 [degF] Jian Muniz MD Work Phone: [facility] 10-25-2022 10:06-0500 Body weight 66.86 kg Jian Muniz MD Work Phone: [facility] 10-25-2022 10:06-0500 Diastolic blood pressure 65 mm[Hg] Jian Muniz MD Work Phone: [facility] 10-25-2022 10:06-0500 Heart rate 57 /min Jian Muniz MD Work Phone: [facility] 10-25-2022 10:06-0500 Respiratory rate 18 /min Jian Muniz MD Work Phone: [facility] 10-25-2022 10:06-0500 SaO2% (BldA) [Mass fraction] 96 % Jian Muniz MD Work Phone: [facility] 10-25-2022 10:06-0500 Systolic blood pressure 127 mm[Hg] Jian Muniz MD Work Phone: [facility] 04-18-2022 09:56-0400 Body temperature 96.69 [degF] JULIO C Stock MD Work Phone: [facility] 04-18-2022 09:56-0400 Body weight 66.68 kg JULIO C Stock MD Work Phone: [facility] 04-18-2022 09:56-0400 Diastolic blood pressure 66 mm[Hg] JULIO C Stock MD Work Phone: [facility] 04-18-2022 09:56-0400 Heart rate 60 /min JULIO C Stock MD Work Phone: [facility] 04-18-2022 09:56-0400 Respiratory rate 18 /min JULIO C Stock MD Work Phone: [facility] 04-18-2022 09:56-0400 SaO2% (BldA) [Mass fraction] 96 % JULIO C Stock MD Work Phone: [facility] 04-18-2022 09:56-0400 Systolic blood pressure 123 mm[Hg] JULIO C Stock MD Work Phone: [facility] Encounters Encounter Date Encounter Type Care Provider Facility Start: 12-02-2023 End: 12-02-2023 ambulatory Christine Robles Jr Facility:[facility] Start: 12-02-2023 End: 12-02-2023 ambulatory MD Christine Robles Jr [facility] Work Phone: Start: 12-02-2023 End: 12-02-2023 Departed Referred MD Christine Robles Jr [facility] Start: 10-24-2023 End: 10-24-2023 ambulatory YUMIKO SHAW Facility:[facility] Start: 10-17-2023 End: 10-17-2023 ambulatory JIAN MUNIZ Facility:[facility] Start: 09-29-2023 End: 09-29-2023 ambulatory CHRISTINE ROBLES Not Available Start: 04-03-2023 End: 04-03-2023 ambulatory Tawanna STOCK Facility:[facility] Start: 10-25-2022 End: 10-25-2022 ambulatory Jian Muniz MD Work Phone: Hematology/Oncology Comment on above: History of lung canc er (Primary Dx); Need for influenza vaccination; Malignant neoplasm of unspecified part of unspecified bronchus or lung (HCC) Start: 10-25-2022 End: 10-25-2022 Patient encounter procedure Jian Muniz MD Work Phone: [facility] Start: 04-18-2022 End: 04-18-2022 Patient encounter procedure Tawanna Stock MD Work Phone: Radiation Oncology Comment on above: Personal history of malignant neoplasm of bronchus and lung (Primary Dx) Start: 11-11-[address] [facility] Facility:[facility] Start: 09-28-2018 End: 09-29-[address] [facility] Facility: Start: 09-15-2018 End: 09-16-2018 Patient encounter procedure MENA COLE Facility:[facility] Start: 08-28-2018 End: 08-29-2018 Patient encounter procedure AUSTIN RODRIGUEZ Facility:[facility] Start: 08-10-2018 End: 08-11-2018 Patient encounter procedure AUSTIN RODRIGUEZ Facility:[facility] Start: 08-03-2018 End: 08-04-2018 Patient encounter procedure AUSTIN RODRIGUEZ Facility:[facility] Start: 07-23-2018 Encounter for other preprocedural examination AUSTIN [facility] Start: 07-21-2018 End: 07-21-2018 Patient encounter procedure AUSTIN RODRIGUEZ Facility:[facility] Start: 07-15-2018 End: 07-16-2018 Patient encounter procedure AUSTIN RODRIGUEZ Facility:[facility] Start: 07-03-2018 End: 07-04-2018 Patient encounter procedure AUSTIN RODRIGUEZ Facility:[facility] Start: 06-02-2018 End: 06-03-2018 Patient encounter procedure AUSTIN RODRIGUEZ Facility:[facility] Encounter for other preprocedural examination [facility] Procedures Date Procedure Procedure Detail Performing Clinician Start: 04-18-2022 Adult depression screening assessment NA Dayami SINCLAIR Work Phone: Plan of Treatment Date Care Activity Detail Author Start: 04-19-2028 Urine microalbumin profile DTAP,TDAP,TD (2 - Td or Tdap) [facility] Start: 10-25-2023 End: 11-24-2023 Ct thorax w/o contrast material CT CHEST WO IVCON Radiology Routine Malignant neoplasm of unspecified part of unspecified bronchus or lung (HCC) Expected: 10/25/2023, Expires: 11/24/2023 [facility] Work Phone: Comment on above: Expected: 10/25/2023 , Expires: 11/24/2023 Start: 04-18-2023 Adult depression screening assessment DEPRESSION SCREENING [facility] Start: 04-18-2023 End: 05-18-2023 Radiologic exam chest 2 views XR CHEST 2V FRONTAL/LAT Radiology Routine Personal history of malignant neoplasm of bronchus and lung Expected: 04/18/2023 (Approximate), Expires: 05/18/2023 [facility] Work Phone: Comment on above: Expected: 04/18/2023 (Approximate), Expires: 05/18/2023 Start: 11-10-2021 ADVANCE DIRECTIVE DISCUSSION ADVANCE DIRECTIVE DISCUSSION [facility] Start: 11-10-2021 DEPRESSION ASSESSMENT DEPRESSION ASS ESSMENT [facility] Start: 07-12-2021 COVID-19 VACCINE (3 - Booster for Moderna series) COVID-19 VACCINE (3 - Booster for Moderna series) [facility] Start: 04-06-2021 COVID-19 VACCINE (3 - Booster for Moderna series) COVID-19 VACCINE (3 - Booster for Moderna series) [facility] Start: 08-20-2018 PNEUMOCOCCAL: 65+ (3 - PPSV23 if available, else PCV20) PNEUMOCOCCAL: 65+ (3 - PPSV23 if available, else PCV20) [facility] Start: 08-20-2018 PNEUMOCOCCAL: 65+ (3 - PPSV23 or PCV20) PNEUMOCOCCAL: 65+ (3 - PPSV23 or PCV20) [facility] Start: 11-13-2014 SHINGRIX VACCINE (1 of 2) SHINGRIX VACCINE (1 of 2) [facility] Start: 1995 COLOGUARD (FIT-DNA) COLOGUARD (FIT-D NA) [facility] Start: 1995 Colonoscopy COLONOSCOPY [facility] Start: 1995 COLORECTAL CANCER SCREENING COLORECTAL CANCER SCREENING [facility] Start: [address] COLONOGRAPHY [facility] Start: 1995 DIABETES SCREEN DIABETES SCREEN [facility] Start: 1995 FECAL OCCULT BLOOD FECAL OCCULT BLOO D [facility] Start: 1995 SIGMOIDOSCOPY SIGMOIDOSCOPY [facility] Start: 1985 LIPID SCREEN LIPID SCREEN [facility] Start: 1968 HEPATITIS C SCREENING HEPATITIS C SC REENING [facility] Start: 1950 ABDOMINAL AORTIC ANEURYSM SCREENING ABDOMINAL AORTIC ANEURYSM SCREENING [facility] Immunizations Immunization Date Immunization Notes Care Provider [place] fall 10-25-2022 influenza, high-dose , quadrivalent vaccine (FLUZONE HIGH DOSE QUADRIVALENT) Jian Muniz MD Work Phone: [facility] 10-26-2021 influenza, high-dose , quadrivalent vaccine (FLUZONE HIGH DOSE QUADRIVALENT) JULIO C Stock MD Work Phone: [facility] 10-30-2020 influenza, high-dose , quadrivalent vaccine (FLUZONE HIGH DOSE QUADRIVALENT) JULIO C Stock MD Work Phone: [facility] 10-22-2019 influenza, high dose seasonal, preservative-free JULIO C Stock MD Work Phone: [facility] 12-03-2018 influenza, high dose seasonal, preservative-free JULIO C Stock MD Work Phone: [facility] 04-19-2018 tetanus toxoid, redu isac diphtheria toxoid, and acellular pertussis vaccine, adsorbed JULIO C Stock MD Work Phone: [facility] 08-12-2017 influenza, high dose seasonal, preservative-free JULIO C Stock MD Work Phone: [facility] 08-10-2016 influenza, injectabl e, quadrivalent, preservative free JULIO C Stock MD Work Phone: [facility] 12-18-2015 pneumococcal conjuga te vaccine, 13 valent JULIO C Stock MD Work Phone: [facility] 10-09-2015 influenza, seasonal, injectable JULIO C Stock MD Work Phone: [facility] 08-10-2015 seasonal influenza, intradermal, preservative free JULIO C Stock MD Work Phone: [facility] 09-18-2014 varicella virus vaccine JULIO C latif MD Work Phone: [facility] 08-19-2014 influenza, injectabl e, quadrivalent, preservative free JULIO C Stock MD Work Phone: [facility] 10-13-2013 seasonal influenza, intradermal, preservative free JULIO C Stock MD Work Phone: [facility] 08-21-2013 seasonal influenza, intradermal, preservative free JULIO C Stock MD Work Phone: [facility] 08-20-2013 pneumococcal polysaccharide vaccine, 23 valent NA Dayami SINCLAIR Work Phone: [facility] Payers Date Payer Category Payer Self-pay 2013 Unknown ANTHEM BLUE CROS S AND BLUE SHIELD ANTHEM MEDIBLUE ACCESS [id number] 2013-Present [phone] [address] [place] [address] PPO [id number] 2013 Unknown ANTHEM BLUE CROS S AND BLUE SHIELD ANTHEM MEDIBLUE ACCESS [id number] 2013-Present [phone] [address] [place] [address] PPO [id number] 1959 Unknown [id number] 1950 Unknown [id number] 1950 Unknown [id number] 1950 Unknown [id number] 1950 Unknown [id number] 1950 Unknown [id number] 1950 Unknown [id number] 1950 Unknown [id number] 1950 Unknown [id number] 1950 Unknown [id number] 1950 Unknown [id number] 1950 Unknown [id number] 9 Social History Date Type Detail Facility Start: 02-18-2014 End: 10-25-2022 Tobacco smoking status NHIS Smokes tobacco daily [facility] History of tobacco use Cigarette Smoker [facility] Start: 02-18-2014 End: 10-25-2022 Cigarettes smoked current (pack per day) - Reported 1 [facility] Start: 02-18-2014 End: 10-25-2022 Tobacco use and exposure Smokeless tobacco non-user [facility] Start: 10-26-2021 End: 10-25-2022 Alcohol intake Current non-drinker of alcohol (finding) [facility] Start: 1950 Sex Assigned At Not on file [facility] Start: 04-08-2022 End: 04-18-2022 Exposure to SARS-CoV-2 (event) Not sure [facility] History of tobacco use Passive smoker [facility] Start: 1950 Sex Assigned At Male F [facility] Progress note 10-24-2023 Note Date & Type Note Facility 10-24-2023 Note HNO ID: [id number] Author: Yumiko Shaw PA-C Service: ? Author Type: Physician Registered Route Associate Type: Progress Notes Filed: 10/24/2023 10:55 AM Note Text: PATIENT NAME: Sarika Chris [facility] NO.: [id number] ATTENDING PHYSICIAN: Jian Muniz MD DATE OF [...] Yumiko Shaw PA-C CC: Georgia Buenrostro MD [facility] Progress note 10-17-2023 Note Date & Type Note Facility 10-17-2023 Note HNO ID: [id number] Author: Kaycee Dumont, RT(R) Service: ? Author Type: Technologist Type: [...] PERIPHERAL IV DATA: Not applicable SIGNED BY: Kaycee Dumont, RT(R) October 17, 2023 10:07 AM [facility] Progress note 04-03-2023 Note Date & Type Note Facility 04-03-2023 Note HNO ID: [id number] Author: Tawanna Stock MD Service: ? Author [...] for follow-up. Signed by: Tawanna Stock MD [facility] Progress note 04-03-2023 Note Date & Type Note Facility 04-03-2023 Note HNO ID: [id number] Author: Kaycee Dumont, (R) Service: ? Author Type: Technologist Type: Progress [...] RT Dee(R) April 03, 2023 8:43 AM [facility] Nurse Note 10-25-2022 Cinthya Rojas MA - 10/25/2022 10:50 AM ESTCinthya Rojas MA - 10/25/2022 10:10 AM EST Note Date & Type Note Facility 10-25-2022 Nurse Note Patient Identification confirmed: yes. Injection given and documented on JAN per provider order. Cinthya Rojas MA Patient would like a flu shot today. Cinthya Rojas MA documented in this encounter [facility] History of Present illness Narrative 10-25-2022 Jian Muniz MD - 10/25/2022 10:34 AM EST Note Date & Type Note Facility 10-25-2022 History of Presen t illness Narrative PATIENT NAME: Sarika Crowder [facility] NO.: [id number] ATTENDING PHYSICIAN: Jian Muniz MD DATE OF SERVICE: October 25, 2022 Some of the elements of this note have been copied from my previous progress note dated 10/30/2020. All the information has been reviewed carefully. Dear Dr. Buenrostro here is an update on a follow up visit on male aSrika Crowder at the clinic October 25, 2022 [...] 0.38 (L) 1.00 - 4.00 k/uL Final Russell% Date Value Ref Range Status 04/18/2014 9.7 % Final Abs Russell Date Value Ref Range Status 04/18/2014 0.22 0.00 - 0.86 k/uL Final Abs Eosin Date Value Ref Range Status 04/18/2014 0.02 0.00 - 0.45 k/uL Final Baso% Date Value Ref Range Status 04/18/2014 0.4 % Final Abs Baso Date Value Ref Range Status 04/18/2014 0.01 0.00 - 0.10 k/uL Final Comment: Performed at [facility] , [address] [place] [address] PATH: SCC of the lung. Imaging: PET [...] do not hesitate to contact me at [phone]. Jian Muniz MD Hematology/Medical Oncology [facility] CC: Georgia Buenrostro MD I spent a total of 30 minutes on the date of the service which included preparing to see the patient, [id number] patient care, completing clinical documentation, obtaining and/or reviewing separately obtained history, performing a medically appropriate examination, and ordering medications, tests, or procedures. documented in this encounter [facility] History of Present illness Narrative 04-18-2022 Tawanna [...] Tawanna Stock MD documented in this encounter [facility] Evaluation note Note Date & Type Note Facility Evaluation note Diagnosis Personal history of malignant neoplasm of bronchus and lung- Primary documented in this encounter [facility] Evaluation note Note Date & Type Note Facility Evaluation note Diagnosis History of lung cancer- Primary Personal history of malignant neoplasm of bronchus and lung Need for influenza vaccination Need for prophylactic vaccination and inoculation against influenza Malignant neoplasm of unspecified part of unspecified bronchus or lung (HCC) documented in this encounter [facility] Evaluation note Note Date & Type Note Facility Evaluation note No assessment information availa [facility] Work Phone: Summary Purpose Family History No Family History [...] TOMOGRAPHY THORAX W/O CNTRST Jian Muniz MD [address] [place] [address] Ct Imaging Referral ID Status Reason Start Date Expiration Date Visits Requested Visits Authorized [id number] Authorized Auto-Generat ed Referral 3 11/24/2023 1 1 Additional Source Comments (unrecognized sect ion and content) No Status Records FoundNo Status Records FoundNo Status Records FoundNo Status Records FoundNo Status Records Found INFORMATION SOURCE (unrecogn ized section and content) DATE CREATED AUTHOR 11/07/2018 [facility] DATE CREATED AUTHOR AUTHOR'S ORGANIZ ATION 12/25/2021 [facility] dical Specialist DATE CREATED AUTHOR AUTHOR'S ORGANIZ ATION 09/30/2023 [facility] dical [facility] DATE CREATED AUTHOR AUTHOR'S ORGANIZ ATION 10/26/2023 [facility] DATE CREATED AUTHOR AUTHOR'S ORGANIZ ATION 12/04/2023 [facility] Source Comments (unrecognize d section and content) In the event this informatio n is protected by the Federal Confidentiality of Alcohol and Drug Abuse Patient Records regulations: The Federal rules restrict any use of the information to criminally investigate or prosecute any alcohol or drug abuse patient.[facility] the event this information is protected by the Federal Confidentiality of Alcohol and Drug Abuse Patient Records regulations: The Federal rules restrict any use of the information to criminally investigate or prosecute any alcohol or drug abuse patient.[facility] Reason for Visit (unrecogniz ed section and content) Reason Comments Lung Cancer Reason Comments Lung Cancer 1 year follow up Care Teams (unrecognized sec tion and content) Licensing Services Clerk Relationship Specialty Start Date End Date Georgia Buenrostro MD [address] [place], [place] [id number] PCP - General Family Practice 02/17/14 Licensing Services Clerk Relationship Specialty Start Date End Date Georgia Buenrostro MD [address] [place], [place] [id number] PCP - General Family Medicine 02/17/14 Team Status: Inactive Member Role Status Dates Christine Robles Jr, MD Attending Provider Active Start: December 02, 2023 End: December 02, 2023 Goals (unrecognized section and content) Goals may be documented in a n alternate section FOR RECORDS PERTAINING TO PATIENTS WHO ARE [...] BE BASED ON THE PRIMARY CLINICAL RECORDS. [facility]. provides no warranty or guarantee of the accuracy or completeness of information in this document.
== END 2023-12-10 09:43 | disposition home or self-care (01) ==
LOC: LAB 09:42
PROVIDERS: PCP Family Medicine; Visit Provider Otolaryngology
DX: H92.12 Otorrhea, left ear (principal)
CPT/HCPCS: 87070; 87150; 87186